=== PATIENT | male | born 1940 | race Caucasian/White ===

== ENCOUNTER 2020-09-10 07:59 | Outpatient (REF) | payer MEDICARE, SELFPAY ==
[2020-09-10 10:21] LABS: MANUAL DIFF FLAG NO
[2020-09-10 10:45] LABS: Estimated Average Glucose 166 mg/dL; Hemoglobin A1c % 7.4 %
[2020-09-10 10:54] LABS: Alanine Aminotransferase 24 U/L (0-40); Albumin Level 3.7 g/dL (3.5-5.0); Alkaline Phosphatase 82 U/L (39-117); Anion Gap 13 (12-20); Aspartate Amino Transferase 21 U/L (5-37); Basophils Percent Auto 0.3 % (0-2); Bilirubin Total 1.9 mg/dL (0.0-1.0); Blood Urea Nitrogen 20 mg/dL (9-16); Calcium 8.7 mg/dL (8.4-10.2); Carbon Dioxide 25 mmol/L (22-29); Chloride 106 mmol/L (96-108); Cholesterol 85 mg/dL; Eosinophils Absolute Auto 0.3 X10*3/uL (0.0-0.4); Eosinophils Percent Auto 3.9 % (0-4); Estimated Glomerular Filt Rate > 60; Glucose Fasting 141 mg/dL (60-99); HDL Cholesterol 25 mg/dL; Hematocrit 41.9 % (42-52); Hemoglobin 13.8 g/dl (14.0-18.0); Imm Gran Abs Auto 0.04 X10*3/uL (0.00-0.03); Imm Gran Pct Auto 0.6 % (0.0-0.4); LDL Cholesterol Calculated 42 mg/dl; Lymphocytes Absolute Auto 1.1 X10*3/uL (1.2-4.9); Lymphocytes Percent Auto 15.2 % (20-40); Mean Corpuscular HGB Conc 32.9 g/dl (31.0-36.0); Mean Corpuscular Hemoglobin 27.8 pg (27.0-33.0); Mean Corpuscular Volume 84.5 fL (80-98); Mean Platelet Volume 11.6 fL (9.4-12.4); Monocytes Absolute Auto 0.7 X10*3/uL (0.1-1.2); Monocytes Percent Auto 10.3 % (2-11); Neutrophils Percent Auto 69.7 % (45-73); Platelet Count 172 X10*3/uL (160-400); Potassium 4.3 mmol/L (3.3-5.1); Red Blood Count 4.96 X10*6/uL (4.60-5.80); Red Cell Distribution Width 13.5 % (11.0-16.0); Sodium 140 mmol/L (135-145); Triglycerides 90 mg/dL; White Blood Count 7.1 X10*3/uL (4.8-10.8)
[2020-09-10 11:16] LABS: Creatinine Urine 76.02 mg/dL; Microalbum/Creatinine Ratio Ur 9.2 ug/mg cr
== END 2020-09-10 08:00 | disposition home or self-care (01) ==
LOC: HO.10HDL 07:59
PROVIDERS: Visit Provider Internal Medicine
DX: Z00.00 Encounter for general adult medical examination without abnormal findings (principal); E11.9 Type 2 diabetes mellitus without complications
CPT/HCPCS: 36415; 80053; 80061; 82043; 83036; 85025

== ENCOUNTER 2021-07-31 08:19 | Outpatient (REF) | payer MEDICARE, SELFPAY ==
[2021-07-31 11:08] LABS: Cholesterol 82 mg/dL; Glucose Fasting 155 mg/dL (60-99); HDL Cholesterol 24 mg/dL; LDL Cholesterol Calculated 44 mg/dl; Triglycerides 74 mg/dL
[2021-07-31 12:09] LABS: Estimated Average Glucose 154 mg/dL
== END 2021-07-31 08:20 | disposition home or self-care (01) ==
LOC: HO.10HDL 08:19
PROVIDERS: Visit Provider Internal Medicine
DX: E11.65 Type 2 diabetes mellitus with hyperglycemia (principal)
CPT/HCPCS: 36415; 80061; 82947; 83036

== ENCOUNTER 2022-10-14 08:42 | Outpatient (REF) | payer MEDICARE, SELFPAY ==
[2022-10-14 10:25] LABS: MANUAL DIFF FLAG NO
[2022-10-14 10:30] LABS: Basophils Percent Auto 0.2 % (0-2); Eosinophils Absolute Auto 0.3 X10*3/uL (0.0-0.4); Eosinophils Percent Auto 3.3 % (0-4); Hematocrit 42.1 % (42.0-52.0); Hemoglobin 13.7 g/dl (14.0-18.0); Imm Gran Abs Auto 0.07 X10*3/uL (0.00-0.03); Imm Gran Pct Auto 0.8 % (0.0-0.4); Lymphocytes Absolute Auto 1.3 X10*3/uL (1.2-4.9); Lymphocytes Percent Auto 13.5 % (20-40); Mean Corpuscular HGB Conc 32.5 g/dl (31.0-36.0); Mean Corpuscular Hemoglobin 26.8 pg (27.0-33.0); Mean Corpuscular Volume 82.4 fL (80.0-98.0); Mean Platelet Volume 11.6 fL (9.4-12.4); Monocytes Absolute Auto 0.9 X10*3/uL (0.1-1.2); Monocytes Percent Auto 9.5 % (2-11); Neutrophils Absolute Auto 6.7 x10*3/uL (2.0-8.3); Neutrophils Percent Auto 72.7 % (45-73); Platelet Count 165 X10*3/uL (160-400); Red Blood Count 5.11 X10*6/uL (4.60-5.80); Red Cell Distribution Width 14.5 % (11.0-16.0); White Blood Count 9.2 X10*3/uL (4.8-10.8)
[2022-10-14 10:49] LABS: Estimated Average Glucose 163 mg/dL; Hemoglobin A1c % 7.3 %
[2022-10-14 11:10] LABS: Alanine Aminotransferase 23 U/L (0-40); Albumin Level 3.6 g/dL (3.5-5.0); Alkaline Phosphatase 90 U/L (39-117); Anion Gap 13 (12-20); Aspartate Amino Transferase 21 U/L (5-37); Blood Urea Nitrogen 18 mg/dL (9-16); Calcium 8.9 mg/dL (8.4-10.2); Carbon Dioxide 23 mmol/L (22-29); Chloride 109 mmol/L (96-108); Cholesterol 84 mg/dL; Estimated Glomerular Filt Rate > 60; Glucose Fasting 153 mg/dL (60-99); HDL Cholesterol 23 mg/dL; LDL Cholesterol Calculated 44 mg/dl; Sodium 141 mmol/L (135-145); Total Protein 6.2 g/dL (6.5-8.0); Triglycerides 87 mg/dL
== END 2022-10-14 08:43 | disposition home or self-care (01) ==
LOC: HO.10HDL 08:42
PROVIDERS: Visit Provider Internal Medicine
DX: D64.9 Anemia, unspecified (principal); N28.9 Disorder of kidney and ureter, unspecified; R73.9 Hyperglycemia, unspecified; E78.5 Hyperlipidemia, unspecified
CPT/HCPCS: 36415; 80053; 80061; 83036; 85025

== ENCOUNTER 2023-03-09 14:22 | Outpatient (AMB) | payer MEDICARE, SELFPAY ==
[2023-03-09 14:24] VITALS: BP 108/60; PULSE 68; O2SAT 98; BMI 25.0
--- NOTE | 2023-03-09 14:24 | MHC.PC.OV ---
Vital Signs 03/09/23 14:24 Height 5 ft 6 in Weight 155 lb BMI 25.0 BP 108/60 Blood Pressure Location Lt brachial Position Sitting Pulse 68 Pulse Source Pulse Oximeter Pulse Oximetry (%) 98 Oxygen Delivery Method Room Air Intake Visit Reasons: [facility] 02/27-03/01 Afib Research Staff Member Required: No Financial Recruiter: Not Required per policy Accompanied by: Self / Same As Patient Allergies No Known Allergies Allergy (Verified 03/09/23 14:25) Medication List - Last Reconciled 03/09/23 by Gadiel Mata MD apixaban (Eliquis) 5 mg PO BID aspirin 81 mg PO DAILY atorvastatin 80 mg PO DAILY blood sugar diagnostic Onetouch Ultra Test Strips to check blood sugars once a day dorzolamide-timolol 22.3-6.8 mg/mL 1 drp ophthalmic (eye) BID lancets Onetouch Lancets To check blood sugars once a day latanoprost 0.005% 1 drp ophthalmic (eye) BEDTIME lisinopril 10 mg PO DAILY metformin 500 mg PO BID metoprolol succinate ER 100 mg PO DAILY Tobacco use date assessed: 03/09/23 Fall risk assessment: No Falls in past year Last assessed Fall Risk: 03/09/23 Dental Screening Dental Screen Date: 03/09/23 Did you have a dental visit in the last 12 months?: No Did you have a dental problem in the last 6 months where you did not have access to dental care?: No Was dental information given to patient?: Patient has dentist HPI [facility] 02/27-03/01 Afib HPI Details admitted with paroxysmal afib; converted spontaneously; sees cardiology at [facility] Medical History Encounter for initial annual wellness visit (AWV) in Medicare patient Diabetes mellitus Surgical History History of heart artery stent History of heart bypass surgery Social History Housing: House Alcohol intake: never Patient Tobacco Use Status: Former Tobacco user Tobacco use type: Cigarette Second Hand Smoke Exposure: No Current occupational status: retired Cognitive needs: No Hearing needs: No Vision needs: Yes Questionnaire PHQ-9 Over the last 2 weeks, how often have you been bothered by any of the following problems? 1. Little interest or pleasure in doing things: not at all 2. Feeling down, depressed, or hopeless: not at all 3. Trouble falling or staying asleep, or sleeping too much: not at all 4. Feeling tired or having little energy: not at all 5. Poor appetite or overeating: not at all 6. Feeling bad about yourself - or that you are a failure or have let yourself or your family down: not at all 7. Trouble concentrating on things, such as reading the newspaper or watching television: not at all 8. Moving or speaking so slowly that other people could have noticed. Or the opposite - being so fidgety or restless that you have been moving around a lot more than usual: not at all 9. Thoughts that you would be better off or of hurting yourself in some way: not at all Total score: 0 Depression Screening Interpretation: Negative Depression Screening Done: Yes 41230 - PHQ-9 Billing: Yes Source: Developed by Drs. Js Pathak, Janett Cummings, Stef Trevino and colleagues, with an educational len from [employer]. Thrive Questionnaire Date Thrive assessed: 10/24/22 AUDIT C Alcohol Use Questionnaire (AUDIT-C) 1. How often do you have a drink containing alcohol?: Never Total Score: 0 CRYSTAL-7 AMB Questionnaire CRYSTAL-7 Date CRYSTAL - 7 assessed: 10/24/22 Source: Developed by Drs. Js Pathak, Stef Brennan and colleagues, with an educational len from [employer]. Review of Systems Const Denies chills, Denies headache(s) and Denies weight loss ENT Denies headache(s) Card Denies chest pain, Denies syncope, Denies irregular heart rhythm and Denies dyspnea Resp Denies chest congestion, Denies cough and Denies dyspnea GI Denies abdominal pain, Denies change in stool character, Denies nausea and Denies vomiting Musc Denies deformity and Denies joint swelling Neuro Denies syncope and Denies headache(s) Physical exam (Primary Care) Vital Signs: Last Vital Signs Pulse 68 03/09/23 14:24 BP 108/60 03/09/23 14:24 Pulse Ox 98 03/09/23 14:24 Oxygen Delivery Method Room Air 03/09/23 14:24 BMI result Body Mass Index 25.0 Tobacco/Smoking Status: Tobacco use Status Tobacco use date assessed 03/09/23 03/09/23 14:29 Patient Tobacco Use Status Former Tobacco user 03/09/23 14:24 Tobacco use type Cigarette 03/09/23 14:24 PHQ-9: PHQ-9 Score PHQ-9: Total score 0 03/09/23 14:29 Depression Screening Interpretation: Negative Thrive Assessment: Date of Thrive Assessment Date Thrive assessed 10/24/22 03/09/23 14:24 Const General: cooperative, comfortable, no acute distress and alert Neck Neck: Yes no lymphadenopathy Thyroid: Thyroid normal Resp Effort & Inspection: normal respiratory effort Auscultation: clear to auscultation bilaterally Percussion: percussion normal Cardio Jugular venous distension: no JVD Palpation: normal PMI Rate: regular rate Rhythm: regular rhythm Heart sounds: S1 normal heart sound present and S2 normal heart sound present GI Inspection: Yes normal to inspection Palpation (GI): No hepatosplenomegaly present Skin General skin exam: no rashes or lesions noted Extrem General: Yes no clubbing, cyanosis or edema Assessment and Plan Assessment & Plan (1) Atrial fibrillation: Code(s): I48.91 - Unspecified atrial fibrillation Plan: stable; same rx Coding Level of Care Code Est Pt Level 3 (74402) Diagnoses Atrial fibrillation I48.91
== END 2023-03-09 14:41 | disposition home or self-care (01) ==
PROVIDERS: PCP Internal Medicine; Visit Provider Internal Medicine
DX: I48.91 Unspecified atrial fibrillation (principal)
CPT/HCPCS: 99213

== ENCOUNTER 2023-04-28 14:21 | Outpatient (AMB) | payer MEDICARE, SELFPAY ==
[2023-04-28 14:23] VITALS: BP 138/78; PULSE 53; O2SAT 98; BMI 24.2
--- NOTE | 2023-04-28 14:23 | A.OFFPC_ITS ---
Vital Signs 04/28/23 14:23 Height 5 ft 6 in Weight 150 lb BMI 24.2 BP 138/78 Blood Pressure Location Lt brachial Position Sitting Pulse 53 Pulse Source Pulse Oximeter Pulse Oximetry (%) 98 Oxygen Delivery Method Room Air Intake Visit Reasons: [place], Kidney Mass Optometrist President/Practice Owner Required: No Body Coverer: Not Required per policy Accompanied by: Self / Same As Patient Allergies No Known Allergies Allergy (Verified 04/28/23 14:23) Medication List - Last Reconciled 04/28/23 by Gadiel Mata MD apixaban (Eliquis) 5 mg PO BID aspirin 81 mg PO DAILY atorvastatin 80 mg PO DAILY blood sugar diagnostic Onetouch Ultra Test Strips to check blood sugars once a day dorzolamide-timolol 22.3-6.8 mg/mL 1 drp ophthalmic (eye) BID lancets Onetouch Lancets To check blood sugars once a day latanoprost 0.005% 1 drp ophthalmic (eye) BEDTIME lisinopril 10 mg PO DAILY metformin 500 mg PO BID metoprolol succinate ER 100 mg PO DAILY Tobacco use date assessed: 03/09/23 Fall risk assessment: No Falls in past year Last assessed Fall Risk: 04/28/23 Dental Screening Dental Screen Date: 04/28/23 Did you have a dental visit in the last 12 months?: Yes Did you have a dental problem in the last 6 months where you did not have access to dental care?: No Was dental information given to patient?: Patient has dentist HPI [place], Kidney Mass HPI Details had CBD stones extracted via ercp; incidental renal mass found and MRI pending; feels well [facility] Medical History Encounter for initial annual wellness visit (AWV) in Medicare patient Diabetes mellitus Surgical History History of heart artery stent History of heart bypass surgery Social History Housing: House Alcohol intake: never Patient Tobacco Use Status: Former Tobacco user Tobacco use type: Cigarette Second Hand Smoke Exposure: No Current occupational status: retired Cognitive needs: No Hearing needs: No Vision needs: Yes Questionnaire PHQ-9 Over the last 2 weeks, how often have you been bothered by any of the following problems? 1. Little interest or pleasure in doing things: not at all 2. Feeling down, depressed, or hopeless: not at all 3. Trouble falling or staying asleep, or sleeping too much: not at all 4. Feeling tired or having little energy: not at all 5. Poor appetite or overeating: not at all 6. Feeling bad about yourself - or that you are a failure or have let yourself or your family down: not at all 7. Trouble concentrating on things, such as reading the newspaper or watching television: not at all 8. Moving or speaking so slowly that other people could have noticed. Or the opposite - being so fidgety or restless that you have been moving around a lot more than usual: not at all 9. Thoughts that you would be better off or of hurting yourself in some way: not at all Total score: 0 Depression Screening Interpretation: Negative Depression Screening Done: Yes 31103 - PHQ-9 Billing: Yes Source: Developed by Drs. Js Pathak, Janett Cummings, Stef Trevino and colleagues, with an educational len from [employer]. Thrive Questionnaire Date Thrive assessed: 11/19/22 I am a: Patient What is your living situation today?: I have a steady place to live Within the past 12 months, did the food you bought not last and you didn't have the money to get more?: Never true Within the past 12 months, did you worry whether your food would run out before you got money to buy more?: Never true Do you have trouble paying for medicines?: No Do you have trouble getting transportation to medical appointments?: No Do you have trouble paying your heating and electricity bill?: No Do you have trouble taking care of your child, family member or friend?: No Do you have trouble with day-to-day activities such as bathing, preparing meals, shopping, managing finances, etc.?: No Are you currently unemployed and looking for a job?: No Are you interested in more education?: No Please select the resources that you would like help with: None AUDIT C Alcohol Use Questionnaire (AUDIT-C) 1. How often do you have a drink containing alcohol?: Never Total Score: 0 Score Reviewed/Action Taken: Yes CRYSTAL-7 AMB Questionnaire CRYSTAL-7 Date CRYSTAL - 7 assessed: 04/28/23 Feeling nervous, anxious, or on edge: 0 = Not at all Not being able to stop or control worryin = Not at all Worrying too much about different things: 0 = Not at all Trouble relaxin = Not at all Being so restless that it is hard to sit still: 0 = Not at all Becoming easily annoyed or irritable: 0 = Not at all Feeling afraid as if something awful might happen: 0 = Not at all Total CRYSTAL-7 score (0-4 normal; 5-9 mild; 10-14 moderate; 15-21 severe): 0 Source: Developed by Drs. Js Pathak, Janett Cummings, Stef Trevino and colleagues, with an educational len from [employer]. CRYSTAL-7 Assessment Billing CRYSTAL-7 Assessment Tool: CRYSTAL-7 Assessment 95934 Review of Systems Const Denies chills, Denies headache(s) and Denies weight loss ENT Denies headache(s) Card Denies chest pain, Denies syncope, Denies irregular heart rhythm and Denies dyspnea Resp Denies chest congestion, Denies cough and Denies dyspnea GI Denies abdominal pain, Denies change in stool character, Denies nausea and Denies vomiting Musc Denies deformity and Denies joint swelling Neuro Denies syncope and Denies headache(s) Physical exam (Primary Care) Vital Signs: Last Vital Signs Pulse 53 04/28/23 14:23 BP 138/78 04/28/23 14:23 Pulse Ox 98 04/28/23 14:23 Oxygen Delivery Method Room Air 04/28/23 14:23 BMI result Body Mass Index 24.2 Tobacco/Smoking Status: Tobacco use Status Tobacco use date assessed 03/09/23 04/28/23 14:24 Patient Tobacco Use Status Former Tobacco user 04/28/23 14:24 Tobacco use type Cigarette 04/28/23 14:24 PHQ-9: PHQ-9 Score PHQ-9: Total score 0 04/28/23 14:35 Depression Screening Interpretation: Negative Thrive Assessment: Date of Thrive Assessment Date Thrive assessed 11/19/22 04/28/23 14:24 Const General: cooperative, comfortable, no acute distress and alert Neck Neck: Yes no lymphadenopathy Thyroid: Thyroid normal Resp Effort & Inspection: normal respiratory effort Auscultation: clear to auscultation bilaterally Percussion: percussion normal Cardio Jugular venous distension: no JVD Palpation: normal PMI Rate: regular rate Rhythm: regular rhythm Heart sounds: S1 normal heart sound present and S2 normal heart sound present GI Inspection: Yes normal to inspection Palpation (GI): No hepatosplenomegaly present Skin General skin exam: no rashes or lesions noted Extrem General: Yes no clubbing, cyanosis or edema Results AMB Hemoglobin A1c AMB Hemoglobin A1c 9.1 % Last Edit by LEONARDO Hitchcock on 04/28/23 14:36 Results Reviewed Results Reviewed: Laboratory Last Values Hgb A1c (Clinic) 9.1 % (4.0-6.0) H 04/28/23 14:24 Assessment and Plan Assessment & Plan (1) Renal mass: Code(s): N28.89 - Other specified disorders of kidney and ureter Plan: as per urology Orders: Orders AMB Hemoglobin A1c Today E11.9 - Type 2 diabetes mellitus without complications Medications: Refilled blood sugar diagnostic Onetouch Ultra Test Strips to check blood sugars once a day 100 ea 3RF DX: E11.0 lancets Onetouch Lancets To check blood sugars once a day 100 ea 2RF diabetes mellitus E11.9 - Type 2 diabetes mellitus without complications Coding Level of Care Code Est Pt Level 3 (87638) Diagnoses Renal mass N28.89 Additional Codes CRYSTAL-7 Assessment Billing - CRYSTAL-7 Assessment Tool: CRYSTAL-7 Assessment [id number] ([id number])
== END 2023-04-28 14:57 | disposition home or self-care (01) ==
PROVIDERS: PCP Internal Medicine; Visit Provider Internal Medicine
DX: E11.9 Type 2 diabetes mellitus without complications (principal); N28.89 Other specified disorders of kidney and ureter
CPT/HCPCS: 83036; 99213

== ENCOUNTER 2023-06-04 09:28 | Outpatient (REF) | payer MEDICARE, SELFPAY ==
[2023-06-04 10:42] LABS: Blood Urea Nitrogen 15 mg/dL (9-16); Estimated Glomerular Filt Rate > 60
== END 2023-06-04 09:29 | disposition home or self-care (01) ==
LOC: HO.10HDL 09:28
PROVIDERS: Visit Provider Radiology Vascular & Interventional Radiology
DX: R79.89 Other specified abnormal findings of blood chemistry (principal); R94.4 Abnormal results of kidney function studies
CPT/HCPCS: 36415; 82565; 84520

== ENCOUNTER 2023-06-19 09:13 | Outpatient (REF) | payer MEDICARE, SELFPAY ==
[2023-06-19 11:57] LABS: Blood Urea Nitrogen 19 mg/dL (9-16); Estimated Glomerular Filt Rate 56
== END 2023-06-19 09:14 | disposition home or self-care (01) ==
LOC: HO.10HDL 09:13
PROVIDERS: Visit Provider Radiology Vascular & Interventional Radiology
DX: R79.89 Other specified abnormal findings of blood chemistry (principal); R94.4 Abnormal results of kidney function studies
CPT/HCPCS: 36415; 82565; 84520

== ENCOUNTER → 2023-06-26 15:24 | Outpatient (BNV) | payer MEDICARE, SELFPAY | PROVIDERS: PCP Internal Medicine; Visit Provider Internal Medicine Cardiovascular Disease | DX: I44.0 Atrioventricular block, first degree (principal) | CPT/HCPCS: 93010 ==

== ENCOUNTER → 2023-07-02 11:21 | Day surgery (SDC) | payer MEDICARE, SELFPAY ==
--- NOTE | 2023-06-26 | ECG_ITS ---
Test Reason : preop Blood Pressure : / mmHG Vent. Rate : 062 BPM Atrial Rate : 062 BPM P-R Int : 224 ms QRS Dur : 082 ms QT Int : 404 ms P-R-T Axes : 002 009 057 degrees QTc Int : 410 ms Sinus rhythm with 1st degree A-V block Otherwise normal ECG When compared with ECG of 27-AUG-2001 06:52, Premature atrial complexes are no longer Present [place] interval has increased T wave amplitude has increased in Inferior leads Referred By: Cielo St Electronically Signed By:Vitaliy Perkins
[2023-06-26 14:29] VITALS: BP 139/65; PULSE 57; RESP 20; O2SAT 97; BMI 24.9
--- NOTE | 2023-06-26 14:36 | P.CONAN_ITS ---
Documented by User: Cielo St NP 06/29/23 10:03 HPI - Anesthesia Eval Consult details Narrative: 83yo M for Kidney Cryo-Ablation Legally blind No recent illness No CP/SOB with gym 3 x weekly Follows [facility] cardiology. Last visit 05/19/2023. Stable. CAD s/p CABG x 5 (2001) and Stent (2016) Conservative treatment for SVT. Doesn't feel symptoms. Eliquis for afib DM. Metformin only. Random POC 120-140 Post-op delerium x 1 per family report after ERCP 03/2023. Very sick prior, jaundice, new SVT. Also ? disoriented d/t blindness. [facility] Active Problems Active Problems: All Active Problems (Updated 06/26/23 @ 14:18 by Nena Sanchez RN) Renal mass (Acute) Atrial fibrillation (Acute) Venous thromboembolism (Acute) Hyperlipidemia (Acute) Hypertension (Acute) Encounter for initial annual wellness visit (AWV) in Medicare patient (Acute) Diabetes mellitus (Acute) Past Medical History Medical History Family history of anesthesia complication Urinary retention Renal calculi PAD (peripheral artery disease) CAD (coronary artery disease) SVT (supraventricular tachycardia) Macular degeneration Renal mass Atrial fibrillation Elevated cholesterol HTN (hypertension) Encounter for initial annual wellness visit (AWV) in Medicare patient Diabetes mellitus Family History Family history of problems with anesthesia: Yes (PONV for daughter, grandchild) Surgical History Surgical History History of ear surgery Hx of cataract extraction Hx of endoscopic retrograde cholangiopancreatography History of heart artery stent History of heart bypass surgery History of Problems with Anesthesia: No Social History Social History Housing: House Are you a primary workforce investment act career manager to a significant other at home: No Do you presently have visiting nurse or other home services: No Alcohol intake: never Patient Tobacco Use Status: Former Tobacco user Quit Date: age 51's Tobacco use type: Pipe Second Hand Smoke Exposure: No Current occupational status: retired Cognitive needs: No Hearing needs: No Vision needs: Yes Meds Allergies Allergy/AdvReac Type Severity Reaction Status Date / Time No Known Allergies Allergy Verified 07/02/23 12:46 Home Medications Medication Instructions Recorded Confirmed Last Taken Type metoprolol succinate 100 mg 100 mg PO QAM 10/02/20 06/26/23 07/02/23 History tablet,extended release 24 hr apixaban 5 mg tablet (Eliquis) 5 mg PO BID 09/11/21 06/25/23 06/26/23 History aspirin 81 mg tablet,delayed 81 mg PO QAM 09/11/21 06/26/23 06/27/23 History release dorzolamide 22.3 mg-timolol 6.8 1 drp ophthalmic (eye) BID 09/11/21 06/25/23 Unknown History mg/mL eye drops latanoprost 0.005 % eye drops 1 drp ophthalmic (eye) BEDTIME 09/11/21 06/25/23 Unknown History [id number] 250 mg-dha 90 1 cap PO QAM 06/25/23 06/26/23 Unknown History mg-epa 160 fm-fqhr-kvxn-zeax capsule (Ocuvite Adult 50 Plus) atorvastatin 80 mg tablet 80 mg PO BEDTIME 06/26/23 06/26/23 Unknown History lisinopril 10 mg tablet 10 mg PO QAM 06/26/23 06/26/23 Unknown History Exam Height,Weight and Vital Signs: Height 5 ft 6 in Weight 69.853 kg Last Vital Signs Pulse 57 06/26/23 14:29 Resp 20 06/26/23 14:29 BP 139/65 06/26/23 14:29 Pulse Ox 97 06/26/23 14:29 O2 Del Method Room Air 06/26/23 14:29 Pertinent Lab Results Pertinent Lab Results: Lab Results 06/26/23 Range/Units 15:17 WBC 9.2 (4.8-10.8) X10*3/uL RBC 4.80 (4.60-5.80) X10*6/uL Hgb 12.7 L (14.0-18.0) g/dl Hct 39.2 L (42.0-52.0) % MCV 81.7 (80.0-98.0) fL MCH 26.5 L (27.0-33.0) pg MCHC 32.4 (31.0-36.0) g/dl RDW 14.7 (11.0-16.0) % Plt Count 256 D (160-400) X10*3/uL MPV 10.6 (9.4-12.4) fL Absolute Nucleated RBC 0.000 (0.0-0.012) X10*3/uL Nucleated RBC % (auto) 0.0 (0.0-0.2) /100WBC PT 15.9 H (11.1-13.3) SEC INR 1.3 H (0.9-1.1) APTT 36.1 (26.0-36.8) SEC Sodium 138 (135-145) mmol/L Potassium 4.3 (3.3-5.1) mmol/L Chloride 106 (96-108) mmol/L Carbon Dioxide 27 (22-29) mmol/L Anion Gap 9 L (12-20) BUN 16 (9-16) mg/dL Creatinine 1.17 (0.5-1.4) mg/dL Estim Creat Clear Calc 43.9 Estimated GFR 60 Random Glucose 251 H (60-115) mg/dL Calcium 9.2 (8.4-10.2) mg/dL Narrative Narrative: EKG 06/2023 Vent. Rate : 062 BPM Atrial Rate : 062 BPM P-R Int : 224 ms QRS Dur : 082 ms QT Int : 404 ms P-R-T Axes : 002 009 057 degrees QTc Int : 410 ms Sinus rhythm with 1st degree A-V block Otherwise normal ECG When compared with ECG of 27-AUG-2001 06:52, Premature atrial complexes are no longer Present [place] interval has increased T wave amplitude has increased in Inferior leads Airway Mallampati Class: II TM Dist: >3cm Neck ROM: Full Denture: Upper and Lower Heart: Reg, rare PVC Lungs: CTAB Assessment and Plan Assessment Anesthesia Assessment: Anesthesia Plan Discussed and PAT Visit Final Anesthetic Review Family History of Problems with Anesthesia: Yes (PONV for daughter, grandchild) History of Problems with Anesthesia: No Documented by User: Mauro Junior MD 07/03/23 10:17 HPI - Anesthesia Eval Consult details Narrative: CASE was cancelled due to no rep available for the procedure 83yo M for Kidney Cryo-Ablation Legally blind No recent illness No CP/SOB with gym 3 x weekly Follows [facility] cardiology. Last visit 05/19/2023. Stable. CAD s/p CABG x 5 (2001) and Stent (2016) Conservative treatment for SVT. Doesn't feel symptoms. Eliquis for afib DM. Metformin only. Random POC 120-140 Post-op delerium x 1 per family report after ERCP 03/2023. Very sick prior, jaundice, new SVT. Also ? disoriented d/t blindness. [facility] Past Medical History Medical History Family history of anesthesia complication Urinary retention Renal calculi PAD (peripheral artery disease) CAD (coronary artery disease) SVT (supraventricular tachycardia) Macular degeneration Renal mass Atrial fibrillation Elevated cholesterol HTN (hypertension) Encounter for initial annual wellness visit (AWV) in Medicare patient Diabetes mellitus Surgical History Surgical History History of ear surgery Hx of cataract extraction Hx of endoscopic retrograde cholangiopancreatography History of heart artery stent History of heart bypass surgery Social History Social History Housing: House Are you a primary workforce investment act career manager to a significant other at home: No Do you presently have visiting nurse or other home services: No Alcohol intake: never Patient Tobacco Use Status: Former Tobacco user Quit Date: age 51's Tobacco use type: Pipe Second Hand Smoke Exposure: No Current occupational status: retired Cognitive needs: No Hearing needs: No Vision needs: Yes Meds Allergies Allergy/AdvReac Type Severity Reaction Status Date / Time No Known Allergies Allergy Verified 07/02/23 12:46 Home Medications Medication Instructions Recorded Confirmed Last Taken Type metoprolol succinate 100 mg 100 mg PO QAM 10/02/20 06/26/23 07/02/23 History tablet,extended release 24 hr apixaban 5 mg tablet (Eliquis) 5 mg PO BID 09/11/21 06/25/23 06/26/23 History aspirin 81 mg tablet,delayed 81 mg PO QAM 05/06/26/23 06/27/23 History release dorzolamide 22.3 mg-timolol 6.8 1 drp ophthalmic (eye) BID 09/11/21 06/25/23 Unknown History mg/mL eye drops latanoprost 0.005 % eye drops 1 drp ophthalmic (eye) BEDTIME 09/11/21 06/25/23 Unknown History [id number] 250 mg-dha 90 1 cap PO QAM 06/25/23 06/26/23 Unknown History mg-epa 160 fv-nqfy-gzap-zeax capsule (Ocuvite Adult 50 Plus) atorvastatin 80 mg tablet 80 mg PO BEDTIME 06/26/23 06/26/23 Unknown History lisinopril 10 mg tablet 10 mg PO QAM 06/26/23 06/26/23 Unknown History
[2023-06-26 15:39] LABS: Hematocrit 39.2 % (42.0-52.0); Hemoglobin 12.7 g/dl (14.0-18.0); Mean Corpuscular HGB Conc 32.4 g/dl (31.0-36.0); Mean Corpuscular Hemoglobin 26.5 pg (27.0-33.0); Mean Corpuscular Volume 81.7 fL (80.0-98.0); Mean Platelet Volume 10.6 fL (9.4-12.4); Platelet Count 256 X10*3/uL (160-400); Red Cell Distribution Width 14.7 % (11.0-16.0); White Blood Count 9.2 X10*3/uL (4.8-10.8)
[2023-06-26 15:43] LABS: INTERNATIONAL NORM RATIO 1.3 (0.9-1.1); Prothrombin Time 15.9 SEC (11.1-13.3)
[2023-06-26 15:46] LABS: Partial Thromboplastin Time 36.1 SEC (26.0-36.8)
[2023-06-26 16:12] LABS: Anion Gap 9 (12-20); Blood Urea Nitrogen 16 mg/dL (9-16); Calcium 9.2 mg/dL (8.4-10.2); Carbon Dioxide 27 mmol/L (22-29); Chloride 106 mmol/L (96-108); Creatinine Clr Calc Pharmacy 43.9; Estimated Glomerular Filt Rate 60; Glucose Random 251 mg/dL (60-115); Potassium 4.3 mmol/L (3.3-5.1); Sodium 138 mmol/L (135-145)
[2023-07-02] MEDS: Lactated Ringers 1,000 ML 100 ML IVCONT (11:58)
[2023-07-02 12:42] VITALS: BP 155/69; PULSE 58; RESP 18; TEMP 36.6; O2SAT 98; BMI 24.9
[2023-07-02 12:54] LABS: Glucose, Whole Blood 132 mg/dL (60-115)
== END ==
PROVIDERS: Nurse Practitioner; PCP Internal Medicine; Visit Provider Radiology Vascular & Interventional Radiology
DX: D41.00 Neoplasm of uncertain behavior of unspecified kidney (principal); Z53.8 Procedure and treatment not carried out for other reasons; I48.91 Unspecified atrial fibrillation; Z79.01 Long term (current) use of anticoagulants; E11.9 Type 2 diabetes mellitus without complications; Z79.84 Long term (current) use of oral hypoglycemic drugs
CPT/HCPCS: 36415; 80048; 82947; 85027; 85610; 85730; 86850; 86900; 86901; 93005; J2371; J2704

== ENCOUNTER 2023-07-07 11:22 | Day surgery (SDC) | payer MEDICARE, SELFPAY ==
--- NOTE | 2023-07-06 08:46 | P.CONAN_ITS ---
Documented by User: Cielo St NP 07/09/23 10:29 HPI - Anesthesia Eval Consult details Narrative: 83yo M for Kidney Cryo-Ablation (Case previously cx'd d/t rep availability) Legally blind No recent illness No CP/SOB with gym 3 x weekly Follows [facility] cardiology. Last visit 05/19/2023. Stable. CAD s/p CABG x 5 (2001) and Stent (2016) Conservative treatment for SVT. Doesn't feel symptoms. Eliquis for afib DM. Metformin only. Random POC 120-140 Post-op delerium x 1 per family report after ERCP 03/2023. Very sick prior, jaundice, new SVT. Also ? disoriented d/t blindness. [facility] Active Problems Active Problems: All Active Problems (Updated 06/26/23 @ 15:07 by Nena Sanchez RN) Renal mass (Acute) Atrial fibrillation (Acute) Venous thromboembolism (Acute) Hyperlipidemia (Acute) Hypertension (Acute) Encounter for initial annual wellness visit (AWV) in Medicare patient (Acute) Diabetes mellitus (Acute) Past Medical History Medical History (Updated 07/07/23 @ 12:36 by Janelle Bailey, SHEBA) Myocardial infarction Family history of anesthesia complication Urinary retention Renal calculi PAD (peripheral artery disease) CAD (coronary artery disease) SVT (supraventricular tachycardia) Macular degeneration Renal mass Atrial fibrillation Elevated cholesterol HTN (hypertension) Encounter for initial annual wellness visit (AWV) in Medicare patient Diabetes mellitus Family History Family history of problems with anesthesia: Yes (PONV for daughter, grandchild) Surgical History Surgical History History of ear surgery Hx of cataract extraction Hx of endoscopic retrograde cholangiopancreatography History of heart artery stent History of heart bypass surgery History of Problems with Anesthesia: No Social History Social History Housing: House Are you a primary career based intervention coordinator to a significant other at home: No Do you presently have visiting nurse or other home services: No Alcohol intake: never Patient Tobacco Use Status: Former Tobacco user Quit Date: age 50's Tobacco use type: Pipe Second Hand Smoke Exposure: No Current occupational status: retired Cognitive needs: No Hearing needs: No Vision needs: Yes Meds Allergies Allergy/AdvReac Type Severity Reaction Status Date / Time No Known Allergies Allergy Verified 07/07/23 12:37 Home Medications Medication Instructions Recorded Confirmed Last Taken Type metoprolol succinate 100 mg 100 mg PO QAM 10/02/20 07/07/23 07/02/23 History tablet,extended release 24 hr apixaban 5 mg tablet (Eliquis) 5 mg PO BID 09/11/21 07/07/23 07/04/23 History aspirin 81 mg tablet,delayed 81 mg PO QAM 09/11/21 07/07/23 06/30/23 History release dorzolamide 22.3 mg-timolol 6.8 1 drp ophthalmic (eye) BID 09/11/21 07/07/23 Unknown History mg/mL eye drops latanoprost 0.005 % eye drops 1 drp ophthalmic (eye) BEDTIME 09/11/21 07/07/23 Unknown History uacvnyzp-agr-ssajp3 250 mg-dha 90 1 cap PO QAM 06/25/23 07/07/23 Unknown History mg-epa 160 hh-osel-nptl-zeax capsule (Ocuvite Adult 50 Plus) atorvastatin 80 mg tablet 80 mg PO BEDTIME 06/26/23 07/07/23 Unknown History lisinopril 10 mg tablet 10 mg PO QAM 06/26/23 07/07/23 Unknown History Exam Height,Weight and Vital Signs: Height 5 ft 6 in Weight 69.853 kg Last Vital Signs Pulse 57 06/26/23 14:29 Resp 20 06/26/23 14:29 BP 139/65 06/26/23 14:29 Pulse Ox 97 06/26/23 14:29 O2 Del Method Room Air 06/26/23 14:29 Pertinent Lab Results Pertinent Lab Results: Lab Results 06/26/23 Range/Units 15:17 WBC 9.2 (4.8-10.8) X10*3/uL RBC 4.80 (4.60-5.80) X10*6/uL Hgb 12.7 L (14.0-18.0) g/dl Hct 39.2 L (42.0-52.0) % MCV 81.7 (80.0-98.0) fL MCH 26.5 L (27.0-33.0) pg MCHC 32.4 (31.0-36.0) g/dl RDW 14.7 (11.0-16.0) % Plt Count 256 D (160-400) X10*3/uL MPV 10.6 (9.4-12.4) fL Absolute Nucleated RBC 0.000 (0.0-0.012) X10*3/uL Nucleated RBC % (auto) 0.0 (0.0-0.2) /100WBC PT 15.9 H (11.1-13.3) SEC INR 1.3 H (0.9-1.1) APTT 36.1 (26.0-36.8) SEC Sodium 138 (135-145) mmol/L Potassium 4.3 (3.3-5.1) mmol/L Chloride 106 (96-108) mmol/L Carbon Dioxide 27 (22-29) mmol/L Anion Gap 9 L (12-20) BUN 16 (9-16) mg/dL Creatinine 1.17 (0.5-1.4) mg/dL Estim Creat Clear Calc 43.9 Estimated GFR 60 Random Glucose 251 H (60-115) mg/dL Calcium 9.2 (8.4-10.2) mg/dL Narrative Narrative: EKG 06/2023 Vent. Rate : 062 BPM Atrial Rate : 062 BPM P-R Int : 224 ms QRS Dur : 082 ms QT Int : 404 ms P-R-T Axes : 002 009 057 degrees QTc Int : 410 ms Sinus rhythm with 1st degree A-V block Otherwise normal ECG When compared with ECG of 27-AUG-2001 06:52, Premature atrial complexes are no longer Present GA interval has increased T wave amplitude has increased in Inferior leads Airway Mallampati Class: II TM Dist: >3cm Neck ROM: Full Denture: Upper and Lower Heart: Reg, rare PVC Lungs: CTAB Assessment and Plan Assessment Anesthesia Assessment: Chart Reviewed (Seen in PAT 06/26/23) Final Anesthetic Review Family History of Problems with Anesthesia: Yes (PONV for daughter, grandchild) History of Problems with Anesthesia: No Documented by User: Nohemi Jerome MD 07/10/23 08:18 [facility] Past Medical History Medical History (Updated 07/07/23 @ 12:36 by Janelle Bailey, SHEBA) Myocardial infarction Family history of anesthesia complication Urinary retention Renal calculi PAD (peripheral artery disease) CAD (coronary artery disease) SVT (supraventricular tachycardia) Macular degeneration Renal mass Atrial fibrillation Elevated cholesterol HTN (hypertension) Encounter for initial annual wellness visit (AWV) in Medicare patient Diabetes mellitus Surgical History Surgical History History of ear surgery Hx of cataract extraction Hx of endoscopic retrograde cholangiopancreatography History of heart artery stent History of heart bypass surgery Social History Social History Housing: House Are you a primary career based intervention coordinator to a significant other at home: No Do you presently have visiting nurse or other home services: No Alcohol intake: never Patient Tobacco Use Status: Former Tobacco user Quit Date: age 51's Tobacco use type: Pipe Second Hand Smoke Exposure: No Current occupational status: retired Cognitive needs: No Hearing needs: No Vision needs: Yes Meds Allergies Allergy/AdvReac Type Severity Reaction Status Date / Time No Known Allergies Allergy Verified 07/07/23 12:37 Home Medications Medication Instructions Recorded Confirmed Last Taken Type metoprolol succinate 100 mg 100 mg PO QAM 10/02/20 07/07/23 07/02/23 History tablet,extended release 24 hr apixaban 5 mg tablet (Eliquis) 5 mg PO BID 09/11/21 07/07/23 07/04/23 History aspirin 81 mg tablet,delayed 81 mg PO QAM 09/11/21 07/07/23 06/30/23 History release dorzolamide 22.3 mg-timolol 6.8 1 drp ophthalmic (eye) BID 09/11/21 07/07/23 Unknown History mg/mL eye drops latanoprost 0.005 % eye drops 1 drp ophthalmic (eye) BEDTIME 09/11/21 07/07/23 Unknown History xwkqooto-nej- 250 mg-dha 90 1 cap PO QAM 06/25/23 07/07/23 Unknown History mg-epa 160 pn-owdn-yqqk-zeax capsule (Ocuvite Adult 50 Plus) atorvastatin 80 mg tablet 80 mg PO BEDTIME 06/26/23 07/07/23 Unknown History lisinopril 10 mg tablet 10 mg PO QAM 06/26/23 07/07/23 Unknown History Assessment and Plan Assessment Anesthesia Assessment: Anesthesia Plan Discussed Final Anesthetic Review NPO: Yes ASA Class: III Final Preanesthetic Review: No Changes in Pt Med Stat, Meds/Allgs Chart Reviewed, Consent Obtained/Reviewed and Anes Risks/Benef Reviewed Patient Risk: Intermediate Procedure Risk: Low Anesthetic Plan Anesthetic Plan: GA Disposition: Standard PACU
[2023-07-07] VITALS (13 sets, daily range): BP systolic 128–163; BP diastolic 61–78; PULSE 54–65; RESP 16–20; TEMP 36.1–36.4; O2SAT 95–100; BMI 23.4
--- NOTE | ~2023-07-07 | CT_ITS ---
Cryoablation of the right renal mass INDICATIONS: 3.4 cm mass in the upper pole of the right kidney After informed written consent was obtained an official timeout was performed immediately prior to the procedure. Anesthesia: General PROCEDURE: With the patient in a prone position the skin was prepped and draped in the usual fashion overlying the posterior lateral aspect of the right kidney. Preliminary scans were obtained both pre and post injection of 60 mL of IV contrast. Under CT guidance to ICE DES 2.1 [employer] cryoablation probes were placed in the superior and inferior aspect of the above-noted mass. Freezing was performed for 10 minutes followed by a thaw time of 3 minutes followed by repeat freeze of 10 minutes. Scans at 5 minutes and 10 minutes demonstrate excellent position of the probe was with a with an excellent treatment zone. After the second freeze of 10 minutes the probes were removed after proper time of warming. CT/CT guided ablation renal IMPRESSION: Cryoablation of the right upper pole renal mass with 2- 2.1 mm [employer] cryoablation probes with excellent results.
[2023-07-07] MEDS: Lactated Ringers 1,000 ML 100 ML IVCONT (12:37)
[2023-07-07] MEDS: iohexoL 350 MG/ML 100 ML INFUS..BTL IV (14:51)
== END 2023-07-07 17:42 | disposition home or self-care (01) ==
LOC: HO.SSS 11:23
PROVIDERS: Radiology Vascular & Interventional Radiology; PCP Internal Medicine; Visit Provider Radiology Vascular & Interventional Radiology
DX: C64.1 Malignant neoplasm of right kidney, except renal pelvis (principal); E11.9 Type 2 diabetes mellitus without complications; I10 Essential (primary) hypertension; Z79.84 Long term (current) use of oral hypoglycemic drugs; Z79.01 Long term (current) use of anticoagulants; Z79.82 Long term (current) use of aspirin; Z79.899 Other long term (current) drug therapy
CPT/HCPCS: 50593; 77013; 86850; 86900; 86901; C2618; J0360; J1100; J2371; J2405; J2704

== ENCOUNTER → 2023-07-07 13:13 | Outpatient (BNV) | payer MEDICARE, SELFPAY | PROVIDERS: PCP Internal Medicine; Visit Provider Radiology Vascular & Interventional Radiology | DX: N28.89 Other specified disorders of kidney and ureter (principal) | CPT/HCPCS: 50593; 77013 ==

== ENCOUNTER 2023-08-13 10:36 | Outpatient (REF) | payer MEDICARE, SELFPAY ==
[2023-08-13 13:25] LABS: Appearance Urine Clear; Color Urine Dark Yellow; Glucose Urine UA Negative (Negative); Leukocyte Esterase Urine Moderate (2+) (Negative); Nitrite Urine Negative (Negative); PH 5.5 (5.0-9.0); UMIC TRIGGER UA YES; Urine Blood Trace (Negative); Urine Ketones Negative (Negative); Urine Protein Trace mg/dL (Neg-Trace)
[2023-08-13 13:30] LABS: Anion Gap 9 (12-20); Bacteria Urine None Seen (None Seen); Blood Urea Nitrogen 18 mg/dL (9-16); Calcium 8.8 mg/dL (8.4-10.2); Carbon Dioxide 25 mmol/L (22-29); Chloride 110 mmol/L (96-108); Estimated Glomerular Filt Rate > 60; Glucose Random 156 mg/dL (60-115); Hyaline Casts Urine 0-2 /LPF (0-2); Magnesium 1.6 mg/dL (1.6-2.6); Phosphorus 3.1 mg/dL (2.7-4.5); Potassium 4.1 mmol/L (3.3-5.1); RBC Urine 0-2 /HPF (0-2); Sodium 140 mmol/L (135-145); WBC Urine 21-50 /HPF (0-5)
[2023-08-13 13:33] LABS: Estimated Average Glucose 171 mg/dL; Hemoglobin A1c % 7.6 % (<6.0)
[2023-08-13 14:29] LABS: Creatinine Urine 95.43 mg/dL; Microalbum/Creatinine Ratio Ur 48.2 ug/mg cr (<30); Protein/Creatinine Ratio, Ur 0.19 (<0.2); Total Protein Urine Random 18 mg/dL (<12)
[2023-08-16 10:58] LABS: Calcium, Ionized 4.9 mg/dL (4.7-5.5)
[2023-08-17 17:13] LABS: VITAMIN D (1,25 OH) D3 23 pg/mL; Vit D (1,25-Dihydroxy) Total 23 pg/mL (18-72); Vitamin D (1,25 OH) D2 <8 pg/mL
== END 2023-08-13 10:37 | disposition home or self-care (01) ==
LOC: HO.10HDL 10:36
PROVIDERS: Visit Provider Internal Medicine
DX: E11.22 Type 2 diabetes mellitus with diabetic chronic kidney disease (principal); I12.9 Hypertensive chronic kidney disease with stage 1 through stage 4 chronic kidney disease, or unspecified chronic kidney disease; N18.9 Chronic kidney disease, unspecified; N28.89 Other specified disorders of kidney and ureter
CPT/HCPCS: 36415; 80048; 81001; 82043; 82330; 82570; 82652; 83036; 83735; 84100; 84156

== ENCOUNTER 2023-11-03 08:30 | Outpatient (REF) | payer MEDICARE, SELFPAY ==
[2023-11-03 10:18] LABS: MANUAL DIFF FLAG NO
[2023-11-03 10:30] LABS: Basophils Percent Auto 0.3 % (0-2); Eosinophils Absolute Auto 0.4 X10*3/uL (0.0-0.4); Eosinophils Percent Auto 4.7 % (0-4); Hematocrit 40.3 % (42.0-52.0); Hemoglobin 13.2 g/dl (14.0-18.0); Imm Gran Abs Auto 0.05 X10*3/uL (0.00-0.03); Imm Gran Pct Auto 0.7 % (0.0-0.4); Lymphocytes Absolute Auto 1.3 X10*3/uL (1.2-4.9); Lymphocytes Percent Auto 17.5 % (20-40); Mean Corpuscular HGB Conc 32.8 g/dl (31.0-36.0); Mean Corpuscular Hemoglobin 27.5 pg (27.0-33.0); Mean Platelet Volume 11.1 fL (9.4-12.4); Monocytes Absolute Auto 0.9 X10*3/uL (0.1-1.2); Monocytes Percent Auto 11.7 % (2-11); Neutrophils Percent Auto 65.1 % (45-73); Platelet Count 157 X10*3/uL (160-400); Red Cell Distribution Width 15.4 % (11.0-16.0); White Blood Count 7.6 X10*3/uL (4.8-10.8)
[2023-11-03 10:40] LABS: Estimated Average Glucose 157 mg/dL; Hemoglobin A1c % 7.1 % (<6.0)
[2023-11-03 10:43] LABS: Alanine Aminotransferase 20 U/L (0-40); Albumin Level 3.7 g/dL (3.5-5.0); Alkaline Phosphatase 96 U/L (39-117); Anion Gap 14 (12-20); Aspartate Amino Transferase 21 U/L (5-37); Blood Urea Nitrogen 17 mg/dL (9-16); Calcium 8.9 mg/dL (8.4-10.2); Carbon Dioxide 23 mmol/L (22-29); Chloride 109 mmol/L (96-108); Cholesterol 73 mg/dL (<200); Estimated Glomerular Filt Rate 58; Glucose Fasting 158 mg/dL (60-99); HDL Cholesterol 24 mg/dL (>40); LDL Cholesterol Calculated 36 mg/dL (<100); Potassium 4.1 mmol/L (3.3-5.1); Sodium 142 mmol/L (135-145); Total Protein 6.2 g/dL (6.5-8.0); Triglycerides 65 mg/dL (<150)
[2023-11-03 11:03] LABS: Thyroid Stimulating Hormone 3.25 uIU/mL (0.32-4.0)
== END 2023-11-03 08:31 | disposition home or self-care (01) ==
LOC: HO.10HDL 08:30
PROVIDERS: Visit Provider Internal Medicine
DX: R73.9 Hyperglycemia, unspecified (principal); Z13.0 Encounter for screening for diseases of the blood and blood-forming organs and certain disorders involving the immune mechanism; Z13.220 Encounter for screening for lipoid disorders; Z13.29 Encounter for screening for other suspected endocrine disorder
CPT/HCPCS: 36415; 80053; 80061; 83036; 84443; 85025

== ENCOUNTER 2023-11-23 10:57 | Outpatient (AMB) | payer MEDICARE, SELFPAY ==
--- NOTE | 2023-11-23 11:02 | AM.OFFVISMDC ---
Intake Vital Signs 11/23/23 11:03 Height 5 ft 6 in Weight 151 lb 0.2 oz BMI 24.4 BP 144/62 H Blood Pressure Location Lt brachial Position Sitting Pulse 51 Pulse Source Pulse Oximeter Pulse Oximetry (%) 98 Oxygen Delivery Method Room Air Intake Visit Reasons: wellness [employer] Required: No Allergies No Known Allergies Allergy (Verified 11/23/23 11:03) Medication List - Last Reconciled 11/24/23 by Gadiel Mata MD apixaban (Eliquis) 5 mg PO BID aspirin 81 mg PO QAM atorvastatin 80 mg PO BEDTIME blood sugar diagnostic Onetouch Ultra Test Strips to check blood sugars once a day blood sugar diagnostic (OneTouch Ultra Test strips) test once daily dorzolamide-timolol 22.3-6.8 mg/mL 1 drp ophthalmic (eye) BID lancets Onetouch Lancets To check blood sugars once a day lancets ([employer] UltraSoft 2 Lancet) test once daily latanoprost 0.005% 1 drp ophthalmic (eye) BEDTIME lisinopril 10 mg PO QAM metformin 500 mg PO BID metoprolol succinate ER 100 mg PO QAM hw-br-vv9-oci-ssc-cbot-lut-daly 250 mg (90 mg-160 mg) (Ocuvite Adult 50 Plus) 1 cap PO QAM HPI wellness HPI Details atrial fib hypertension diabetes and hyperlipidemia; doing well PFSH Medical History (Updated 11/24/23 @ 08:39 by Gadiel Mata MD) Myocardial infarction Family history of anesthesia complication Urinary retention Renal calculi PAD (peripheral artery disease) CAD (coronary artery disease) SVT (supraventricular tachycardia) Macular degeneration Renal mass Atrial fibrillation Elevated cholesterol HTN (hypertension) Encounter for initial annual wellness visit (AWV) in Medicare patient Diabetes mellitus Surgical History History of ear surgery Hx of cataract extraction Hx of endoscopic retrograde cholangiopancreatography History of heart artery stent History of heart bypass surgery Social History Housing: House Are you a primary caregivers non medical to a significant other at home: No Do you presently have visiting nurse or other home services: No Alcohol intake: never Patient Tobacco Use Status: Former Tobacco user Tobacco use type: Pipe Second Hand Smoke Exposure: No Current occupational status: retired Cognitive needs: No Hearing needs: No Vision needs: Yes Questionnaire Medicare Wellness Checkup What is your age?: 80 or older What gender do you identify with?: male During the past 4 weeks, how much have you been bothered by emotional problems such as feeling anxious, depressed, irritable, sad or downhearted, and blue?: not at all During the past 4 weeks, has your physical & emotional health limited your social activities with family, friends, neighbors, or groups?: not at all During the past 4 weeks, how much bodily pain have you generally had?: no pain During the past 4 weeks, was someone available to help you if you needed & wanted help?: yes, as much as I wanted During the past 4 weeks, what was the hardest physical activity you could do for at least 2 minutes?: heavy Can you get to places out of walking distance without help? (For eg., can you travel alone on buses, taxis or drive your car?): No Can you go shopping for groceries or clothes without someone's help?: No Can you prepare your own meals?: No Can you do your housework without help?: No Because of any health problems, do you need the help of another person with your personal care needs such as eating, bathing, dressing or getting around the house?: No Can you handle your own money without help?: Yes During the past 4 weeks, how would you rate your health in general?: excellent During the past 4 weeks how have things been going for you?: pretty well Are you having difficulties driving your car?: not applicable, I don't use a car Do you always fasten your seat belt when you are in a car?: yes, usually During past 4 weeks, have you been bothered by the following: never: Falling or dizzy when standing up, Sexual problems?, Trouble eating well?, Teeth or denture problems?, Problems using the telephone? and Tiredness or fatigue? Have you fallen 2 or more times in the past year?: No Are you afraid of falling?: No Are you a smoker?: no During the past 4 weeks, how many drinks of wine, beer, or other alcoholic beverages did you have?: no alcohol at all Do you exercise for about 20 minutes 3 or more times a week?: yes, all the time Have you been given information to help with the following?: no: Hazards in your house that might hurt you? and no: Keeping track of your medications? How often do you have trouble taking medicines the way you have been told to take them?: I always take medicine as prescribed How confident are you that you can control & manage most of your health problems?: very confident What is your race?: White Mini Mental State Exam (MMSE) Orientation What is the (year) (season) (date) (day) (month)?: year, season, date, day and month Where are we (state) (county) (town or city) (hospital) (floor)?: state, county, town or city, hospital/clinic and floor Registration Name of 3 unrelated objects clearly and slowly, then ask patient to repeat all 3 of them. (1st repeat determines score. Make sure they can repeat all three): object 1, object 2 and object 3 Attention & Calculation (CHOOSE ONE) Ask pt to begin with 100 & count backward by 7. Stop after 5 repeats. If pt cannot ask them to spell the word WORLD backward.: 93 Spell WORLD backwards (DLROW): 2 letters Recall Ask patient to repeat the 3 items from question #3.: object 1 Score Score: 17 Activity of Daily Living Bathing - sponge bath, tub bath or shower: receives no assistance (gets in/out by self, if usual bathing means Dressing - getting clothes from closets & drawers, including inner/outer garments & fasteners.: gets clothes & gets completely dressed without help Toileting - going to the 'toilet room' for urine/bowel elimination & cleaning self/arranging clothes: goes to toilet room, cleans self, arranges clothes without help Transfer: moves in & out of bed and chair without help (may use support object) Continence: controls urination/bowel movements completely by self Feeding: feeds self without help Total Score: 0 Information obtained from: patient Using telephone: independent Traveling: independent Shopping: independent Preparing meals: independent Housework: independent Taking medicine: independent Managing money: independent PHQ-9 Over the last 2 weeks, how often have you been bothered by any of the following problems? 1. Little interest or pleasure in doing things: not at all 2. Feeling down, depressed, or hopeless: not at all 3. Trouble falling or staying asleep, or sleeping too much: not at all 4. Feeling tired or having little energy: not at all 5. Poor appetite or overeating: not at all 6. Feeling bad about yourself - or that you are a failure or have let yourself or your family down: not at all 7. Trouble concentrating on things, such as reading the newspaper or watching television: not at all 8. Moving or speaking so slowly that other people could have noticed. Or the opposite - being so fidgety or restless that you have been moving around a lot more than usual: not at all 9. Thoughts that you would be better off or of hurting yourself in some way: not at all Total score: 0 Depression Screening Interpretation: Negative Depression Screening Done: Yes 87597 - PHQ-9 Billing: Yes Source: Developed by Drs. Js Pathak, Janett Cummings, Stef Trevino and colleagues, with an educational len from [employer]. Review of Systems Const Denies chills, Denies fatigue, Denies headache(s) and Denies weight loss Eyes Denies change in vision, Denies diplopia and Denies eye pain ENT Reports Normal hearing present, Denies vertigo, Denies dizziness, Denies headache(s) and Denies nasal discharge Card Denies chest pain, Denies rapid heart rate and Denies dyspnea on exertion Resp Denies chest congestion, Denies cough, Denies pain with cough and Denies dyspnea on exertion GI Denies abdominal pain, Denies hematochezia and Denies change in bowel habits Musc Denies myalgias, Denies arthralgias and Denies joint swelling Skin/Breast Denies lesions and Denies unusual bruising Neuro Reports Normal hearing present, Denies vertigo, Denies dizziness, Denies headache(s) and Denies focal weakness Endo Denies fatigue Physical Exam Vital Signs: Last Vital Signs Pulse 51 11/23/23 11:03 BP 144/62 H 11/23/23 11:03 Pulse Ox 98 11/23/23 11:03 Oxygen Delivery Method Room Air 11/23/23 11:03 BMI result Body Mass Index 24.4 Neuro Cranial nerves: Yes Normal hearing present Assessment & Plan Assessment & Plan (1) Medicare annual wellness visit, subsequent: Code(s): Z00.00 - Encounter for general adult medical examination without abnormal findings Plan: do yakelin=bs; rhomberg and whisper tests nl Orders: Orders Complete Blood Count Auto Diff Today Z13.0 - Encounter for screening for diseases of the blood and blood-forming organs and certain disorders involving the immune mechanism Hemoglobin A1c Today R73.9 - Hyperglycemia, unspecified Lipid Panel Today Z13.220 - Encounter for screening for lipoid disorders Thyroid Stimulating Hormone Today Z13.29 - Encounter for screening for other suspected endocrine disorder Comprehensive [place]. Panel Fast Today Z13.9 - Encounter for screening, unspecified Quality Reporting (2019) Depression/Bipolar (159/160/161/177) PHQ-9: Total score: 0 Coding Level of Care Code Medicare Subsequent (G0439) Diagnoses Medicare annual wellness visit, subsequent Z00.00 CPT Codes Advance Care Planning - Advance Care Planning discussion: On file, no changes ([id number]) Advance Care Planning Advance Care Planning discussion: On file, no changes Forms completed: Health Care Proxy
[2023-11-23 11:03] VITALS: BP 144/62; PULSE 51; O2SAT 98; BMI 24.4
== END 2023-11-23 11:21 | disposition home or self-care (01) ==
PROVIDERS: PCP Internal Medicine; Visit Provider Internal Medicine
DX: Z00.00 Encounter for general adult medical examination without abnormal findings (principal); I48.91 Unspecified atrial fibrillation; I10 Essential (primary) hypertension; E11.65 Type 2 diabetes mellitus with hyperglycemia
CPT/HCPCS: 1123F; G0439

== ENCOUNTER 2024-07-15 11:05 | Outpatient (REF) | payer MEDICARE, SELFPAY ==
[2024-07-15 13:40] LABS: Hematocrit 40.7 % (42.0-52.0); Hemoglobin 13.1 g/dl (14.0-18.0)
[2024-07-15 14:00] LABS: Alanine Aminotransferase 18 U/L (0-40); Albumin Level 3.7 g/dL (3.5-5.0); Alkaline Phosphatase 101 U/L (39-117); Aspartate Amino Transferase 29 U/L (5-37); Bilirubin Direct 0.3 mg/dL (0.0-0.5); Bilirubin Total 0.8 mg/dL (0.0-1.0); Estimated Glomerular Filt Rate 57; Total Protein 6.7 g/dL (6.5-8.0)
== END 2024-07-15 11:06 | disposition home or self-care (01) ==
LOC: HO.10HDL 11:05
PROVIDERS: Visit Provider Pharmacist
DX: I48.91 Unspecified atrial fibrillation (principal)
CPT/HCPCS: 36415; 80076; 82565; 85014; 85018

== ENCOUNTER 2024-08-16 14:31 | Outpatient (AMB) | payer MEDICARE, SELFPAY ==
--- NOTE | 2024-08-16 14:38 | A.OFFPC_ITS ---
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: Present Accompanied by: Spouse Allergies No Known Allergies Allergy (Verified 08/16/24 15:14) Medication List - Last Reconciled 08/16/24 by Britt Ulrich PA-C aspirin 81 mg PO QAM atorvastatin 80 mg PO BEDTIME blood sugar diagnostic (OneTouch Ultra Test strips) test once daily blood sugar diagnostic Onetouch Ultra Test Strips to check blood sugars once a day dorzolamide-timolol 22.3-6.8 mg/mL 1 drp ophthalmic (eye) BID lancets Onetouch Lancets To check blood sugars once a day lancets (OneTouch UltraSoft 2 Lancet) test once daily latanoprost 0.005% 1 drp ophthalmic (eye) BEDTIME lisinopril 10 mg PO QAM metformin 500 mg PO BID metoprolol succinate ER 100 mg PO QAM [id number]-[id number]-lut-daly 250 mg (90 mg-160 mg) (Ocuvite Adult 50 Plus) 1 cap PO QAM Tobacco use date assessed: 08/16/24 Fall risk assessment: No Falls in past year Last assessed Fall Risk: 08/16/24 Dental Screening Dental Screen Date: 08/16/24 Did you have a dental visit in the last 12 months?: No Did you have a dental problem in the last 6 months where you did not have access to dental care?: No Was dental information given to patient?: Patient declined HPI OFFICE VISIT TRANSFER FROM [facility] HPI Details 84-year-old male with past medical histo ry of diabetes mellitus, hypertension, hyperlipidemia, atrial fibrillation, history of DVT last seen by Dr. Mata 11/2023 coming in for follow up. In review of the notes, patient was seen by [facility] 01/2024 for renal mass concerning for renal cell carcinoma s/p embolization and cryoablation of the right kidney 05/2023 and 06/2023. CT scan was reviewed which showed renal mass decreasing in size recommended repeat MRI in 6 months an appointment to follow up.? He was seen by [facility] 11/10 continue on cardiac medications and follow up in 6 months. Presenting with a request for a routine follow-up and management of chronic conditions. Diagnosed with Atrial Fibrillation; subsequently re-evaluated through heart monitor to Supraventricular Tachycardia, allowing for management shift off Eliquis. Urological management ongoing post-MRI with stable findings; future imaging planned for reevaluation. Under ophthalmological care for vein occlusion history; cataract management completed; ongoing injections for macular degeneration with significant legal blindness. Patient was recently seen by Cardiology and taken off of Eliquis after a heart monitor revealed he was in SVT and not AFib. He will be seeing Dr. Sampson for management of SVT next week. He was seen by Urology last week advised to have additional imaging in January to determine further management of the renal cancer. Dr. Patel and has injections every 8 weeks for retina eye assoc had cataracts and vein occlusion and macular degeneration and he is now declared legally blind. [facility] Medical History Venous thromboembolism Myocardial infarction Family history of anesthesia complication Urinary retention Renal calculi PAD (peripheral artery disease) CAD (coronary artery disease) SVT (supraventricular tachycardia) Macular degeneration Renal mass Atrial fibrillation Elevated cholesterol HTN (hypertension) Encounter for initial annual wellness visit (AWV) in Medicare patient Diabetes mellitus Surgical History History of ear surgery Hx of cataract extraction Hx of endoscopic retrograde cholangiopancreatography History of heart artery stent History of heart bypass surgery Social History Housing: House Are you a primary congregational care pastor to a significant other at home: No Do you presently have visiting nurse or other home services: No Alcohol intake: never Patient Tobacco Use Status: Former Tobacco user Tobacco use type: Pipe e-Cigarette/Vaping Use: Never Used Second Hand Smoke Exposure: Yes service: No Current occupational status: retired Cognitive needs: No Hearing needs: No Vision needs: Yes (Glasses) Questionnaire PHQ-9 Over the last 2 weeks, how often have you been bothered by any of the following problems? 1. Little interest or pleasure in doing things: not at all 2. Feeling down, depressed, or hopeless: not at all 3. Trouble falling or staying asleep, or sleeping too much: not at all 4. Feeling tired or having little energy: not at all 5. Poor appetite or overeating: not at all 6. Feeling bad about yourself - or that you are a failure or have let yourself or your family down: not at all 7. Trouble concentrating on things, such as reading the newspaper or watching television: not at all 8. Moving or speaking so slowly that other people could have noticed. Or the opposite - being so fidgety or restless that you have been moving around a lot more than usual: not at all 9. Thoughts that you would be better off or of hurting yourself in some way: not at all Total score: 0 Depression Screening Interpretation: Negative Depression Screening Done: Yes Source: Developed by Drs. Js Pathak, Janett Cummings, Stef Trevino and colleagues, with an educational len from [employer]. Thrive Questionnaire Date Thrive assessed: 08/16/24 I am a: Patient What is your living situation today?: I have a steady place to live Within the past 12 months, did the food you bought not last and you didn't have the money to get more?: Never true Within the past 12 months, did you worry whether your food would run out before you got money to buy more?: Never true Do you have trouble paying for medicines?: No Do you have trouble getting transportation to medical appointments?: No Do you have trouble paying your heating and electricity bill?: No Do you have trouble taking care of your child, family member or friend?: No Do you have trouble with day-to-day activities such as bathing, preparing meals, shopping, managing finances, etc.?: No Are you currently unemployed and looking for a job?: No Are you interested in more education?: No Please select the resources that you would like help with: None Currently or been in a relationship where the following occur: No concerns reported THRIVE Score: 0 AUDIT C Alcohol Use Questionnaire (AUDIT-C) 1. How often do you have a drink containing alcohol?: Never Total Score: 0 CRYSTAL-7 AMB Questionnaire CRYSTAL-7 Date CRYSTAL - 7 assessed: 08/16/24 Feeling nervous, anxious, or on edge: 0 = Not at all Not being able to stop or control worryin = Not at all Worrying too much about different things: 0 = Not at all Trouble relaxin = Not at all Being so restless that it is hard to sit still: 0 = Not at all Becoming easily annoyed or irritable: 0 = Not at all Feeling afraid as if something awful might happen: 0 = Not at all Total CRYSTAL-7 score (0-4 normal; 5-9 mild; 10-14 moderate; 15-21 severe): 0 Source: Developed by Drs. Js Pathak, Janett Cummings, Stef Trevino and colleagues, with an educational len from [employer]. CRYSTAL-7 Assessment Billing CRYSTAL-7 Assessment Tool: CRYSTAL-7 Assessment 21441 Review of Systems Const Denies body aches, Denies chills, Denies fever(s), Denies headache(s) and Denies poor appetite Eyes Details: legally blind ENT Denies dysphagia, Denies dizziness, Denies headache(s) and Denies odynophagia Card Denies chest pain, Denies syncope, Denies edema, Denies irregular heart rhythm, Denies lightheadedness and Denies dyspnea Resp Denies cough and Denies dyspnea GI Denies abdominal pain, Denies constipation, Denies dysphagia, Denies diarrhea and Denies odynophagia Reports no additional complaints Musc Reports no additional complaints and Denies abnormal gait Skin/Breast Reports system reviewed and no additional complaints, except as documented Neuro Denies abnormal gait, Denies dizziness, Denies syncope and Denies headache(s) Psych Reports no additional complaints Physical exam (Primary Care) Vital Signs: Last Vital Signs Temp 97.5 F 08/16/24 14:39 Pulse 59 08/16/24 14:39 BP 110/70 08/16/24 14:39 Pulse Ox 97 08/16/24 14:39 Oxygen Delivery Method Room Air 08/16/24 14:39 BMI result Body Mass Index 24.4 Tobacco/Smoking Status: Tobacco use Status Tobacco use date assessed 08/16/24 08/16/24 14:39 Patient Tobacco Use Status Former Tobacco user 08/16/24 14:39 Tobacco use type Pipe 08/16/24 14:39 e-Cigarette/Vaping Use Never Used 08/16/24 14:39 PHQ-9: PHQ-9 Score PHQ-9: Total score 0 08/16/24 15:41 Depression Screening Interpretation: Negative Thrive Assessment: Date of Thrive Assessment Date Thrive assessed 08/16/24 08/16/24 14:39 Currently or been in a relationship where the following occur: No concerns reported Const General: cooperative, healthy appearing, comfortable and no acute distress Orientation/consciousness: patient oriented x3 HENMT Head: Yes normocephalic Ears: hearing grossly normal bilaterally General nose exam: Normal external nose present Eyes General: appearance normal, both eyes and all related structures Conjunctivae: conjunctivae normal Neck Neck: Yes full ROM and Yes no lymphadenopathy Resp Effort & Inspection: normal respiratory effort Auscultation: clear to auscultation bilaterally, no crackles, no rales, no rhonchi and no wheezes Cardio Rate: regular rate Rhythm: regular rhythm Skin General skin exam: no rashes or lesions noted Neuro General: patient oriented x3 Gait exam (Neuro): Normal gait present Extrem General: Yes normal to inspection, Yes full ROM and No edema Psych Affect: normal affect Attitude: cooperative Insight: Good insight present (Psych) Judgement: Good judgement present (Psych) Results AMB Hemoglobin A1c AMB Hemoglobin A1c 7.3 % Last Edit by LEONARDO Orosco on 08/16/24 14:56 Results Reviewed Results Reviewed: Laboratory Last Values Hgb A1c (Clinic) 7.3 % (4.0-6.0) H 08/16/24 14:38 Coding Level of Care Code Est Pt Level 4 (23669) Diagnoses Renal mass N28.89 Atrial fibrillation I48.91 Hyperlipidemia E78.5 Hypertension I10 Diabetes mellitus E11.9 S/P coronary artery stent placement Z95.5 Macular degeneration H35.30 SVT (supraventricular tachycardia) I47.10 Additional Codes CRYSTAL-7 Assessment Billing - CRYSTAL-7 Assessment Tool: CRYSTAL-7 Assessment 24196 ([id number]) Assessment & Plan Assessment & Plan (1) Renal mass: Code(s): N28.89 - Other specified disorders of kidney and ureter Category: Medical Plan: Patient was seen by Urology 01/2024 s/p embolization and cryoablation of right kidney mass. Repeat CT showed renal mass decreasing in size and recommending repeat MRI in 6 months. MRI was completed 07/20/2024 similar in size to 01/2024 study and advised to have repeat imaging in 6 months. Continue to follow with [facility]. (2) Atrial fibrillation: Code(s): I48.91 - Unspecified atrial fibrillation Category: Medical Plan: Patient is currently being managed with metoprolol 100 mg daily. He was recently taken off of Eliquis as Holter monitor recognized underlying rhythm as SVT and not atrial fibrillation. Continue to follow with Cardiology (3) Hyperlipidemia: Code(s): E78.5 - Hyperlipidemia, unspecified Category: Medical Plan: Avoid foods that are high in cholesterol such as red meat, fried foods, eggs and baked goods. Triglyceride goal of less than 150 and LDL goal of less than 70. Continue on atorvastatin 80 (4) Hypertension: Code(s): I10 - Essential (primary) hypertension Category: Medical Plan: Continue on current blood pressure medication. Avoid salt intake and encourage healthy diet and regular exercise. (5) Diabetes mellitus: Comment: type 2-dx 2015-FBS usually [id number] metformin Code(s): E11.9 - Type 2 diabetes mellitus without complications Category: Medical Plan: Decrease the amount of carbohydrates such as pasta, bread, rice, and potatoes and limit the amount of sweets. Although fruits are generally healthy they should be eaten in moderation as they are still high in sugar. Hemoglobin A1c goal of less than 7%. A1c elevated today at 7.2%. I did discuss with patient importance of monitoring blood sugars given history of myocardial infarction. Patient declines medication adjustment today and understands the risks of elevated blood sugar over time. I did strongly suggest to increase the metformin to 1000 mg b.i.d. which was declined by the patient he would like to continue to work on dietary adjustments at this time. (6) S/P coronary artery stent placement: Comment: 2016 Code(s): Z95.5 - Presence of coronary angioplasty implant and graft Category: Surgical Plan: Patient currently on aspirin daily. Recommend tight control of blood sugars, cholesterol and blood pressure. (7) Macular degeneration: Comment: legally blind Code(s): H35.30 - Unspecified macular degeneration Category: Medical Plan: Patient is declared legally blind by his battery container tester. He does receive monthly injections for macular degeneration. Continue to follow with ophthalmology (8) SVT (supraventricular tachycardia): Comment: conservative management per Cardiology Code(s): I47.10 - Supraventricular tachycardia, unspecified Category: Medical Plan: Patient is currently working with his wood preparation supervisor has his Holter monitor revealed SVTs underlying heart rhythm. He is seeing a specialist at the end of this month to determine further management. Plan Management of hypertension, now controlled with lisinopril and metoprolol, continues. The patient shows improvement in blood pressure readings. Cardiovascular care remains vigilant following the successful identification of Supraventricular Tachycardia; treatment plan adjustments include halting Eliquis, with future possibilities involving the Watchman device, upon Dr. Sampson?s consultation. Macular degeneration requires strict adherence to injection schedules every eight weeks for vision stabilization. Urological health remains monitored, with future imaging planned to assess prostate status. Heart health, previously challenged by a myocardial infarction and CABG, mandates ongoing surveillance and focused lipid management. Recent lab results show a favorable LDL level of 36 mg/dL, indicating effective management strategies. Scheduled blood work includes fasting labs and general urinalysis to monitor overall health and specifically manage diabetic risks. This note was constructed using voice recognition software. While every effort has been made to ensure accuracy and car seat maker, still areas may have been included sometimes these areas may affect the content or meeting of the given symptoms. Total time spent caring for the patient today was 30 minutes. This includes time spent before the visit reviewing the chart, time spent during the visit, and time spent after the visit and documentation. Patient was informed and verbally consented to the use of an ambient scribe for clinic note documentation during this visit. Orders: Orders AMB Hemoglobin A1c 08/16/24 E11.9 - Type 2 diabetes mellitus without complications Complete Blood Count Auto Diff 3 Months Z00.00 - Encounter for general adult medical examination without abnormal findings Comprehensive Met. Panel 3 Months Z00.00 - Encounter for general adult medical examination without abnormal findings Free T4 (Free Thyroxine) 3 Months Z00.00 - Encounter for general adult medical examination without abnormal findings TSH reflex Free T4 3 Months Z00.00 - Encounter for general adult medical examination without abnormal findings Vitamin B12 and Folate 3 Months Z00.00 - Encounter for general adult medical examination without abnormal findings Lipid Panel 3 Months E78.00 - Pure hypercholesterolemia, unspecified Microalbumin, Random (w Creat) 3 Months E11.9 - Type 2 diabetes mellitus without complications PSA, Ultra Sensitive 3 Months Z00.00 - Encounter for general adult medical e xamination without abnormal findings Vitamin D 25-OH Total 3 Months Z00.00 - Encounter for general adult medical examination without abnormal findings
[2024-08-16 14:39] VITALS: BP 110/70; PULSE 59; TEMP 36.4; O2SAT 97; BMI 24.4
--- OUTSIDE RECORDS SUMMARY | 2024-08-16 16:50 | XMS_ITS | Clinical Summary ---
Author Organization [facility] Facility Address [address] [place] [address] Care Team Providers Care Pipe Puller Name Role Phone Unavailable Primary Care Provider Unavailabl e Allergies No known active allergies Medications Eliquis 5 MG tablet Take 1 tablet by mouth 3 Active atorvastatin (LIPITOR) 80 MG tablet Take 80 mg by mouth 7 Active dorzolamide-gila olol (COSOPT) 2-0.5 % ophthalmic solution Administer 1 drop into affected eye(s) 2 Active OneTouch Ultra test strip FOR DX: E11.0 ONETOUCH ULTRA TEST STRIPS TO CHECK BLOOD SUGARS ONCE A DAY 4 Active Lancets (onetouch ultrasoft) lancets USE TO TEST ONCE DAILY 4 Active latanoprost (XALATAN) 0.005 % ophthalmic solution Administer 1 drop into both eyes at bed time 3 Active lisinopril 10 MG tablet Take 10 mg by mouth 7 Active metFORMIN (GLUCOPHAGE) 500 MG tablet Take 500 mg by mouth 7 Active metoprolol succinate XL (TOPROL-XL) 100 MG 24 hr tablet 4 Active Active Problems Problem Noted Date Diagnosed Date Paroxysmal supraventricular tachycardia 08/11/19 Type 2 diabetes mellitus 06/03/2023 Paroxysmal atrial fibrillation 06/03/2023 Hypertension 06/03/2023 Dyslipidemia 06/03/2023 Coronary arteriosclerosis 06/03/2023 Peripheral vascular disease 06/03/2023 Encounters Date Type Department Care Team Description 06/10/2024 Orders Only [facility] [address] [place] [id number] Addison Dillard MD Renal mass; Type 2 diabetes mellitus with diabetic chronic kidney disease (HCC); Hypertension from Last 3 Months Social History Tobacco Use Types Packs/Day Years Used Date Smoking Tobacco: Never Assessed Tobacco Cessation:Counseling Given: Not Answered Sex and Gender Information Value Date Recorded Sex Assigned at Not on file Legal Sex Male 7:57 AM EST Gender Identity Not on file Sexual Orientation Not on file Last Filed Vital Signs Vital Sign Reading Time Taken Comments Blood Pressure 130/64 08/13/2023 9:18 AM EDT Pulse 54 08/13/2023 9:18 AM EDT Temperature - - Respiratory Rate - - Oxygen Saturation - - Inhaled Oxygen Concentration - - Weight 65.3 kg (144 lb) 08/13/2023 9:18 AM EDT Height - - Body Mass Index - - Plan of Treatment Upcoming Encounters Date Type Department Care Team (Late st Contact Info) Description 08/25/2024 1:30 PM EDT Office Visit [facility] [address] [facility] [place] [id number] Addison Dillard MD [address] [facility] [address] [place] [id number] Health Maintenance Due Date Last Done Comments Pneumococcal Vaccine: 50+ Ye ars (1 of 2 - PCV) 01/25/1959 Diabetes: Hemoglobin A1C 04/17/2023 Diabetes: Ophthalmology Exam 04/17/2023 Diabetes: Pedal Pulse Checked 04/17/2023 Diabetes: Sensory Foot Exam 04/17/2023 Diabetes: Visual Foot Exam 04/17/2023 Influenza Vaccine (Season Ended) 2024 Hepatitis B Vaccine Aged Out No longe r eligible based on patient's age to complete this topic Insurance Medicare [facility] Medicare [facility]
--- OUTSIDE RECORDS SUMMARY | 2024-08-16 16:50 | XMS_ITS | Continuity of Care Document ---
Author Organization [facility] Address [address] [place] [id number] Care Team Providers Care Customer Service And Sales Consultant Name Role Phone Gadiel Mata MD Primary Care Physician Encounter [place] Date(s): 07/15/24 - 08/14/24 [facility] [address] [place] [phone]- Encounter Type: Triage Allergies, Adverse Reactions, Alerts No Known Allergies Immunizations Given and Recorded Vaccine Date Status Refusal Reason SARS-CoV-2 (COVID-19) mRNA BNT-162b2 vac 07/19/20 Given SARS-CoV-2 (COVID-19) mRNA BNT-162b2 vac 06/28/20 Given Medications aspirin 81 mg oral tablet 1 tablet = 81 mg, By Mouth, Daily, # 30 tablet, 0 Refills, Maintenance, 02/19/17 10:30:58 PM EDT, Tablet, [facility] 3 Start Date: 02/19/17 Status: Ordered Quantity: 30.0 Unit: tablet Repeat number: 1 atorvastatin 80 mg oral tablet = 80 mg, By Mouth, Daily at bedtime, # 30 tablet, 0 Refills, Maintenance, Tablet, Route to PharmacyElectronically, [id number], [facility] 3 Start Date: 02/19/17 Status: Ordered Quantity: 30.0 Unit: tablet Repeat number: 1 dorzolamide-timolol 2.23%-0.68% ophthalmic solution 1 drops, Eyes, Both, 2 times a day Start Date: 10/22/21 Status: Ordered Repeat number: 1 Eliquis 5 mg oral tablet 1 tablet, By Mouth, 2 times a day, # 180 tablet, 3 Refills, Maintenance, 03/10/24 11:05:00 AM EST, [facility] WBP, 166, cm, 10/30/23 12:28:00 EDT, Height, 72, kg, 04/13/23 10:04:00 EST, Dry Weight Start Date: 03/10/24 Status: Ordered Quantity: 180.0 Unit: tablet Repeat number: 1 latanoprost 0.005% ophthalmic solution 1 drops, Eyes, Both, Daily at bedtime Start Date: 10/22/21 Status: Ordered Repeat number: 1 lisinopril 10 mg oral tablet 10 mg, By Mouth, Daily, # 30 tablet, Refills 0, Tot. Refills 0, Maintenance, 02/19/17 10:31:37 PM EDT, Route to Pharmacy Electronically, [facility] 3 Start Date: 02/19/17 Status: Ordered Quantity: 30.0 Unit: tablet Repeat number: 1 metFORMIN 500 mg oral tablet 1 tablet = 500 mg, By Mouth, 2 times a day, # 60 tablet, 0 Refills, Maintenance, 02/19/17 10:31:30 PM EDT, Tablet, [facility] 3 Start Date: 02/19/17 Status: Ordered Quantity: 60.0 Unit: tablet Repeat number: 1 Metoprolol Succinate ER 100 mg oral tablet, extended release 100 mg, 1, tablet, By Mouth, Daily, # 90 tablet, Refills 3, Tot. Refills 3, Maintenance, 06/15/24 10:14:00 AM EST, Route to Pharmacy Electronically, [facility], Partial fill upon patient request if the prescription is for a schedule II opioid drug., 168, cm, 06/14/24 12:58:00 EST, Height, 69.5, kg, 04/16/24 23:04:00 EST, Dry Weight Start Date: 06/15/24 Status: Ordered Quantity: 90.0 Unit: tablet Repeat number: 4 Ocuvite 1 tablet, By Mouth, Daily, 0 Refills, Maintenance, 02/19/17 7:25:53 AM EDT Start Date: 02/19/17 Status: Ordered Repeat number: 1 Problem List Condition Confirmation Course Effective Dates Status Health St atus Informant Coronary artery disease Confirmed Active Dyslipidemia Confirmed Active Hypertension Confirmed Active Paroxysmal A-fib Confirmed Active Paroxysmal SVT (supraventricular tachycardia) Confirmed Active Peripheral arterial disease Confirmed Active Type 2 diabetes mellitus Confirmed Active Social History Social History Type Response Smoking Status Never smoker entered on: 11/28/14 Sex Sex Representation Male (finding) Patient Care team information Care Team Personnel Name: Lakeisha Rodriguez RN Position: [facility] RN Member Role: Primary Care Nurse Name: Kaci Cesar RN Position: [facility] RN Member Role: Primary Care Nurse Name: Katie Raya RN Position: [facility] RN Member Role: Primary Care Nurse Name: Angely Lee RN Position: [facility] RN Member Role: Primary Care Nurse Name: Gadiel Mata MD Position: Reference Physician Member Role: PCP Address: [address] [place] [id number] [employer]: Name: Frank Escobedo MD Position: [facility] Renal MD Member Role: Lifetime Consulting Physician Address: [address] [facility] [address] [facility] [place] [address]- [place] [employer]: Care Team Related Persons Name: HERNANDEZ OSORIO Name: KAITLYNN ONTIVEROS Insurance Providers Guarantor name: CEDRICK OSORIO Health Plan Information #: 1 Payer: MEDICARE PART B OUTPT Member Number: NA Policy Number: NA Group Number: NA Health Plan Information #: 2 Payer: [employer]EX Member Number: NA Policy Number: NA Group Number: NA
== END 2024-08-16 15:32 | disposition home or self-care (01) ==
LOC: HO.HMCH 14:32
DX: E11.9 Type 2 diabetes mellitus without complications (principal)

== ENCOUNTER → 2024-08-16 14:31 | Outpatient (BNVA) | payer MEDICARE, SELFPAY | DX: N28.89 Other specified disorders of kidney and ureter (principal); I48.91 Unspecified atrial fibrillation; E78.5 Hyperlipidemia, unspecified; E11.9 Type 2 diabetes mellitus without complications; I10 Essential (primary) hypertension; I47.10 Supraventricular tachycardia, unspecified; H35.30 Unspecified macular degeneration; Z95.5 Presence of coronary angioplasty implant and graft | CPT/HCPCS: 83036; 96127; 99212 ==

== ENCOUNTER 2024-11-08 09:13 | Outpatient (REF) | payer MEDICARE, SELFPAY ==
--- OUTSIDE RECORDS SUMMARY | 2024-11-08 09:46 | XMS_ITS | Clinical Summary ---
Author Organization [facility] Address [address] [place] [address] [place] [address] Phone Care Team Providers Care Machine Setup Operator Name Role Phone Oniel Eddy MD Primary Care Provider [phone] Allergies No known active allergies Medications atorvastatin (LIPITOR) 80 MG tablet Take 80 [...] Date Diagnosed Date Paroxysmal supraventricular tachycardia 08/11/19 24 Type 2 diabetes mellitus 06/03/2023 Paroxysmal atrial fibrillation 06/03/2023 Hypertension 06/03/2023 Dyslipidemia 06/03/2023 Coronary arteriosclerosis 06/03/2023 Peripheral vascular disease 06/03/2023 Encounters Date Type Department Care Team Description 08/25/2024 1:30 PM EDT [facility] Visit [facility] [address] [place] [address] Addison Dillard MD Renal mass (Primary Dx); Type 2 diabetes mellitus with diabetic chronic [...] Sign Reading Time Taken Comments Blood Pressure 130/62 08/25/2024 1:45 PM EDT Pulse 62 08/25/2024 1:45 PM EDT Temperature - - Respiratory Rate - - Oxygen Saturation 96% 08/25/2024 1:45 PM EDT Inhaled Oxygen Concentration - - Weight 70 kg (154 lb 6.4 oz) 08/25/2024 1:45 PM EDT Height - - Body Mass Index - - Plan of Treatment Upcoming Encounters Date Type Department Care Team (Late st Contact Info) Description 08/29/2025 1:00 PM EDT Office Visit [facility] [address] [address] Addison Dillard MD [address] [place] [phone] Health Maintenance Due Date Last Done Comments Pneumococcal Vaccine: 50+ Ye ars (1 of 2 - PCV) 01/25/1959 Diabetes: Hemoglobin A1C 04/17/2023 Diabetes: Ophthalmology Exam 04/17/2023 Diabetes: Pedal Pulse Checked 04/17/2023 Diabetes: Sensory Foot Exam 04/17/2023 Diabetes: Visual Foot Exam 04/17/2023 Influenza Vaccine (#1) 2024 Hepatitis B Vaccine Aged Out No longe r eligible based on patient's age to complete this topic Procedures Procedure Name Priority Date/Time Associated Diagnosis Comments ALT (EXTERNAL RESULT ENTRY) Routine 08/16/2024 from Last 3 Months Results * ALT (08/16/2024) Hemoglobin A1C 7.3 Blood specimen (specimen) Venous blood / Unknown 08/16/2024 us Historical Provider LAB BLOOD ORDERABLES Eugenia snowden Result from Last 3 Months Insurance Medicare [facility] Medicare [facility] Care Teams Machine Setup Operator Relationship Specialty Start Date End Date Oniel Eddy MD [address] [place], [place] PCP - General Internal Medicine 08/25/24
[2024-11-08 09:48] LABS: MANUAL DIFF FLAG NO
[2024-11-08 09:53] LABS: Hematocrit 39.1 % (42.0-52.0); Hemoglobin 13.0 g/dl (14.0-18.0); Imm Gran Abs Auto 0.07 X10*3/uL (0.00-0.03); Imm Gran Pct Auto 0.8 % (0.0-0.4); Lymphocytes Absolute Auto 1.2 X10*3/uL (1.2-4.9); Mean Corpuscular HGB Conc 33.2 g/dl (31.0-36.0); Mean Corpuscular Hemoglobin 27.5 pg (27.0-33.0); Mean Corpuscular Volume 82.8 fL (80.0-98.0); NRBC Abs Auto 0.000 X10*3/uL (0.0-0.012); NRBC Pct Auto 0.0 /100WBC (0.0-0.2); Platelet Count 187 X10*3/uL (160-400); Red Blood Count 4.72 X10*6/uL (4.60-5.80); White Blood Count 9.1 X10*3/uL (4.8-10.8)
[2024-11-08 10:24] LABS: Alanine Aminotransferase 19 U/L (0-40); Albumin Level 3.8 g/dL (3.5-5.0); Alkaline Phosphatase 94 U/L (39-117); Anion Gap 13 (12-20); Aspartate Amino Transferase 28 U/L (5-37); Blood Urea Nitrogen 20 mg/dL (9-16); Calcium 8.6 mg/dL (8.4-10.2); Carbon Dioxide 22 mmol/L (22-29); Chloride 108 mmol/L (96-108); Cholesterol 73 mg/dL (<200); Estimated Glomerular Filt Rate 50; HDL Cholesterol 21 mg/dL (>40); Potassium 4.1 mmol/L (3.3-5.1); Sodium 139 mmol/L (135-145); Total Protein 6.4 g/dL (6.5-8.0); Triglycerides 86 mg/dL (<150)
[2024-11-08 10:44] LABS: Free T4 (Free Thyroxine) 0.93 ng/dL (0.71-1.85)
[2024-11-08 10:46] LABS: Folate 12.9 ng/mL (> or = 4.0); Vitamin B12 163 pg/mL (200-900)
[2024-11-08 10:56] LABS: Microalbum/Creatinine Ratio Ur 17.9 ug/mg cr (<30)
[2024-11-11 21:03] LABS: PSA, Ultra Sensitive 0.88 ng/mL
== END 2024-11-08 09:14 | disposition home or self-care (01) ==
LOC: HO.10HDL 09:13
DX: Z00.00 Encounter for general adult medical examination without abnormal findings (principal); Z12.5 Encounter for screening for malignant neoplasm of prostate; E78.00 Pure hypercholesterolemia, unspecified; E11.9 Type 2 diabetes mellitus without complications
CPT/HCPCS: 36415; 80053; 80061; 82043; 82306; 82570; 82607; 82746; 84153; 84439; 84443; 85025

== ENCOUNTER 2024-12-02 13:28 | Outpatient (AMB) | payer MEDICARE, SELFPAY ==
--- OUTSIDE RECORDS SUMMARY | 2024-12-02 13:30 | XMS_ITS | Clinical Summary ---
Author Organization [facility][1] Address [address] [place] [address] Phone Care Team Providers Care Assembler Metal Furniture Name Role Phone Oniel Eddy MD Primary Care Provider [phone] Allergies No known active allergies Medications atorvastatin [...] Coronary arteriosclerosis 06/03/2023 Peripheral vascular disease 06/03/2023 Social History Tobacco Use Types Packs/Day Years [...] Office Visit [facility] [address] [address] Addison Dillard MD [address] [address] Health Maintenance Due Date Last Done [...] age to complete this topic Insurance Medicare [facility] Medicare [facility] Care Teams Assembler Metal Furniture Relationship Specialty Start Date End Date Oniel Eddy MD [facility] [place] [address] [place] PCP - General Internal Medicine 08/25/24
--- NOTE | 2024-12-02 13:32 | MHC.PC.OV ---
Vital Signs 12/02/24 13:33 Height 5 ft 6 in Blood Pressure Location Lt brachial Position Sitting Pulse Source Pulse Oximeter Oxygen Delivery Method Room Air Intake Visit Reasons: WELLNESS SUBSEQUENT Consumer Safety Inspector Required: No Accompanied by: Spouse Allergies No Known Allergies Allergy (Verified 12/02/24 13:32) Tobacco use date assessed: 12/02/24 Fall risk assessment: No Falls in past year Last assessed Fall Risk: 12/02/24 Dental Screening Dental Screen Date: 12/02/24 Did you have a dental visit in the last 12 months?: No Did you have a dental problem in the last 6 months where you did not have access to dental care?: No Was dental information given to patient?: No [facility] Medical History Venous thromboembolism Myocardial infarction Family history of anesthesia complication Urinary retention Renal calculi PAD (peripheral artery disease) CAD (coronary artery disease) SVT (supraventricular tachycardia) Macular degeneration Renal mass Atrial fibrillation Elevated cholesterol HTN (hypertension) Encounter for initial annual wellness visit (AWV) in Medicare patient Diabetes mellitus Surgical History History of ear surgery Hx of cataract extraction Hx of endoscopic retrograde cholangiopancreatography History of heart artery stent History of heart bypass surgery Social History Housing: House Are you a primary career based intervention coordinator to a significant other at home: No Do you presently have visiting nurse or other home services: No Alcohol intake: never Patient Tobacco Use Status: Former Tobacco user Tobacco use type: Pipe e-Cigarette/Vaping Use: Never Used Second Hand Smoke Exposure: Yes service: No Current occupational status: retired Cognitive needs: No Hearing needs: No Vision needs: Yes (Glasses) Questionnaire Thrive Questionnaire Date Thrive assessed: 12/02/24 I am a: Patient What is your living situation today?: I have a steady place to live Within the past 12 months, did the food you bought not last and you didn't have the money to get more?: Never true Within the past 12 months, did you worry whether your food would run out before you got money to buy more?: Never true Do you have trouble paying for medicines?: No Do you have trouble getting transportation to medical appointments?: No Do you have trouble paying your heating and electricity bill?: No Do you have trouble taking care of your child, family member or friend?: No Do you have trouble with day-to-day activities such as bathing, preparing meals, shopping, managing finances, etc.?: No Are you currently unemployed and looking for a job?: No Are you interested in more education?: No Please select the resources that you would like help with: None Currently or been in a relationship where the following occur: No concerns reported THRIVE Score: 0 CRYSTAL-7 AMB Questionnaire CRYSTAL-7 Date CRYSTAL - 7 assessed: 12/02/24 Source: Developed by Drs. Js Pathak, Janett Cummings, Stef Trevino and colleagues, with an educational len from [employer]. Physical exam (Primary Care) Tobacco/Smoking Status: Tobacco use Status Tobacco use date assessed 08/16/24 08/16/24 14:39 Patient Tobacco Use Status Former Tobacco user 08/16/24 14:39 Tobacco use type Pipe 08/16/24 14:39 e-Cigarette/Vaping Use Never Used 08/16/24 14:39 Thrive Assessment: Date of Thrive Assessment Date Thrive assessed 08/16/24 08/16/24 14:39 Currently or been in a relationship where the following occur: No concerns reported Coding
[2024-12-02 13:33] VITALS: BP 138/58; PULSE 67; O2SAT 97; BMI 23.9
--- NOTE | 2024-12-02 13:35 | A.OFFVIS_ITS ---
Intake Vital Signs 12/02/24 13:33 Height 5 ft 6 in Weight 148 lb 6 oz BMI 23.9 BP 138/58 L Blood Pressure Location Lt brachial Position Sitting Pulse 67 Pulse Source Pulse Oximeter Pulse Oximetry (%) 97 Oxygen Delivery Method Room Air Intake Visit Reasons: WELLNESS SUBSEQUENT Allergies No Known Allergies Allergy (Verified 12/02/24 13:45) Medication List - Last Reconciled 12/02/24 by Britt Ulrich PA-C aspirin 81 mg PO QAM atorvastatin 80 mg PO BEDTIME blood sugar diagnostic (OneTouch Ultra Test strips) test once daily blood sugar diagnostic Onetouch Ultra Test Strips to check blood sugars once a day dorzolamide-timolol 22.3-6.8 mg/mL 1 drp ophthalmic (eye) BID lancets Onetouch Lancets To check blood sugars once a day lancets (OneTouch UltraSoft 2 Lancet) test once daily latanoprost 0.005% 1 drp ophthalmic (eye) BEDTIME lisinopril 10 mg PO QAM mecobalamin (vitamin B12) 1,000 mcg PO DAILY metformin 500 mg PO BID metoprolol succinate ER 100 mg PO QAM [id number]-[id number]-clo-oqs-eztg-lut-daly 250 mg (90 mg-160 mg) (Ocuvite Adult 50 Plus) 1 cap PO QAM HPI WELLNESS SUBSEQUENT HPI Details 84-year-old male with past medical histo ry of diabetes mellitus, hypertension, hyperlipidemia, atrial fibrillation, history of DVT last seen by Dr. Mata 11/2023 coming in for AWV. In review of the notes, patient was seen by cardiology 08/2024 considering EP study and ablation. He had the ablation with Dr. Sampson 11/01/2024 and completed heart monitor and awaiting the read. Presenting with atrial fibrillation status post-ablation and diabetes mellitus. He reports no symptoms of heart racing post-procedure and is awaiting results from a recent heart monitor test. The patient's HbA1c has increased to 7.5. He is currently on metformin 500 mg twice daily, which will be increased to 1000 mg twice daily. The patient admits to dietary indiscretions, including consumption of M&Ms. The patient has a low B12 level and has been advised to take vqbj-gdn-tesoiaa B12 supplements. The patient experiences occasional leg swelling and uses compression stockings. colonoscopy: declined PSA: Up-to-date 09/2024 eye doctor: Every 8 weeks with a retina specialist [facility] Medical History Venous thromboembolism Myocardial infarction Family history of anesthesia complication Urinary retention Renal calculi PAD (peripheral artery disease) CAD (coronary artery disease) SVT (supraventricular tachycardia) Macular degeneration Renal mass Atrial fibrillation Elevated cholesterol HTN (hypertension) Encounter for initial annual wellness visit (AWV) in Medicare patient Diabetes mellitus Surgical History History of ear surgery Hx of cataract extraction Hx of endoscopic retrograde cholangiopancreatography History of heart artery stent History of heart bypass surgery Social History Housing: House Are you a primary home care administrator to a significant other at home: No Do you presently have visiting nurse or other home services: No Alcohol intake: never Patient Tobacco Use Status: Former Tobacco user Tobacco use type: Pipe e-Cigarette/Vaping Use: Never Used Second Hand Smoke Exposure: Yes service: No Current occupational status: retired Cognitive needs: No Hearing needs: No Vision needs: Yes (Glasses) Questionnaire Medicare Wellness Checkup What is your age?: 80 or older What gender do you identify with?: male During the past 4 weeks, how much have you been bothered by emotional problems such as feeling anxious, depressed, irritable, sad or downhearted, and blue?: not at all During the past 4 weeks, has your physical & emotional health limited your social activities with family, friends, neighbors, or groups?: not at all During the past 4 weeks, how much bodily pain have you generally had?: no pain During the past 4 weeks, was someone available to help you if you needed & wanted help?: yes, as much as I wanted During the past 4 weeks, what was the hardest physical activity you could do for at least 2 minutes?: heavy Can you get to places out of walking distance without help? (For eg., can you travel alone on buses, taxis or drive your car?): Yes Can you go shopping for groceries or clothes without someone's help?: Yes Can you prepare your own meals?: Yes Can you do your housework without help?: Yes Because of any health problems, do you need the help of another person with your personal care needs such as eating, bathing, dressing or getting around the house?: No Can you handle your own money without help?: Yes During the past 4 weeks, how would you rate your health in general?: very good During the past 4 weeks how have things been going for you?: very well; could hardly better Are you having difficulties driving your car?: not applicable, I don't use a car Do you always fasten your seat belt when you are in a car?: yes, usually During past 4 weeks, have you been bothered by the following: never: Falling or dizzy when standing up, Sexual problems?, Trouble eating well?, Teeth or denture problems?, Problems using the telephone? and Tiredness or fatigue? Have you fallen 2 or more times in the past year?: No Are you afraid of falling?: No Are you a smoker?: no During the past 4 weeks, how many drinks of wine, beer, or other alcoholic beverages did you have?: no alcohol at all Do you exercise for about 20 minutes 3 or more times a week?: yes, most of the time Have you been given information to help with the following?: no: Hazards in your house that might hurt you? and no: Keeping track of your medications? How often do you have trouble taking medicines the way you have been told to take them?: I always take medicine as prescribed How confident are you that you can control & manage most of your health problems?: very confident What is your race?: White PHQ-9 Over the last 2 weeks, how often have you been bothered by any of the following problems? 1. Little interest or pleasure in doing things: not at all 2. Feeling down, depressed, or hopeless: not at all 3. Trouble falling or staying asleep, or sleeping too much: not at all 4. Feeling tired or having little energy: not at all 5. Poor appetite or overeating: not at all 6. Feeling bad about yourself - or that you are a failure or have let yourself or your family down: not at all 7. Trouble concentrating on things, such as reading the newspaper or watching television: not at all 8. Moving or speaking so slowly that other people could have noticed. Or the opposite - being so fidgety or restless that you have been moving around a lot more than usual: not at all 9. Thoughts that you would be better off or of hurting yourself in some way: not at all Total score: 0 Depression Screening Interpretation: Negative Depression Screening Done: Yes 25278 - PHQ-9 Billing: Yes Source: Developed by Drs. Js Pathak, Janett Cummings, Stef Trevino and colleagues, with an educational len from [employer]. Review of Systems Const Denies body aches, Denies chills, Denies fever(s), Denies headache(s) and Denies poor appetite Eyes Reports no additional complaints ENT Denies dysphagia, Denies dizziness, Denies headache(s) and Denies odynophagia Card Denies chest pain, Denies syncope, Denies edema, Denies irregular heart rhythm, Denies lightheadedness and Denies dyspnea Resp Denies cough and Denies dyspnea GI Denies abdominal pain, Denies constipation, Denies dysphagia, Denies diarrhea, Denies nausea, Denies odynophagia and Denies vomiting Reports no additional complaints Musc Reports no additional complaints and Denies abnormal gait Skin/Breast Reports system reviewed and no additional complaints, except as documented Neuro Denies abnormal gait, Denies dizziness, Denies syncope and Denies headache(s) Psych Reports no additional complaints Physical Exam Vital Signs: Last Vital Signs Pulse 67 12/02/24 13:33 BP 138/58 L 12/02/24 13:33 Pulse Ox 97 12/02/24 13:33 Oxygen Delivery Method Room Air 12/02/24 13:33 BMI result Body Mass Index 23.9 Const General: cooperative, healthy appearing, comfortable and no acute distress Orientation/consciousness: patient oriented x3 HEENT Head: Yes normocephalic Ears: hearing grossly normal bilaterally, external ears normal, TM's normal bilaterally and EAC's normal General nose exam: Normal external nose present Face and sinus: Yes normal facial exam and Yes sinuses nontender Mouth: Normal oral and palatal mucosa present and tongue normal Throat: Yes posterior oropharynx normal Eyes General: appearance normal, both eyes and all related structures Conjunctivae: conjunctivae normal Pupils: Equal, round and reactive pupils present EOM: EOMs intact bilaterally and No Nystagmus present Neck Neck: Yes normal visual inspection, Yes full ROM and Yes no lymphadenopathy Chest Chest palpation & inspection: normal inspection of the chest Resp Effort & Inspection: normal respiratory effort Auscultation: clear to auscultation bilaterally, no crackles, no rales, no rhonchi, no wheezes and breath sounds present Cardio Rate: regular rate Rhythm: regular rhythm Peripheral pulses: radial pulses present and dorsalis pedis present GI Inspection: Yes normal to inspection and No Abdominal wall edema Palpation (GI): Soft to palpation, not firm and nontender Auscultation: normal bowel sounds Rectal Exam - Male: Yes deferred General: Yes no CVA tenderness Back/Spine/Pelvis Back: no CVA tenderness Skin General skin exam: no rashes or lesions noted Neuro General: patient oriented x3 Cranial nerves: Yes Equal, round and reactive pupils present, Yes Midline tongue present, Yes Ability to bilaterally elevate shoulders present and No Nystagmus present Gait exam (Neuro): Normal gait present Extrem General: Yes normal to inspection, Yes full ROM, No no pedal edema and No edema Psych Speech and movement: Normal speech and movement present Affect: normal affect Insight: Good insight present (Psych) Judgement: Good judgement present (Psych) Results AMB Hemoglobin A1c AMB Hemoglobin A1c 7.9 % Last Edit by Ruchi Lowe MA on 12/02/24 14:17 Results Reviewed Results Reviewed: Laboratory Last Values Hgb A1c (Clinic) 7.9 % (4.0-6.0) H 12/02/24 13:47 Assessment & Plan Assessment & Plan (1) Medicare annual wellness visit, subsequent: Code(s): Z00.00 - Encounter for general adult medical examination without abnormal findings Plan: Patient has good cognition is able to make informed decisions about his own health. He is up-to-date on all recommended routine screenings and vaccinations for his age. He is declining a colonoscopy and has not happened in the past. Healthy diet and regular exercise is encouraged. Blood work is up-to-date has been reviewed with the patient today. [place] of care was reviewed with patient patient was provided with a written screening schedule. Healthcare proxy/ MOLST forms were reviewed with patient and these were previously completed (2) Hypertension: Code(s): I10 - Essential (primary) hypertension Plan: Continue on current blood pressure medication. Avoid salt intake and encourage healthy diet and regular exercise. (3) S/P coronary artery stent placement: Comment: 2017 Code(s): Z95.5 - Presence of coronary angioplasty implant and graft Plan: Previous history of stent placement in 2017 manage blood pressure, cholesterol and blood sugars. He is currently on aspirin daily, atorvastatin 80 mg and metoprolol 100 mg in the morning (4) SVT (supraventricular tachycardia): Code(s): I47.10 - Supraventricular tachycardia, unspecified Plan: S/p ablation 10/2024 and recently completed a Holter monitor in his awaiting the read. He will continue to follow with his waste recycler for this concern. (5) Hyperlipidemia: Code(s): E78.5 - Hyperlipidemia, unspecified Plan: Avoid foods that are high in cholesterol such as red meat, fried foods, eggs and baked goods. Triglyceride goal of less than 150 and LDL goal of less than 70. Continue on atorvastatin 80. LDL at goal on last labs (6) Diabetes mellitus: Comment: type 2-dx 2015-FBS usually [id number] metformin Code(s): E11.9 - Type 2 diabetes mellitus without complications Plan: Decrease the amount of carbohydrates such as pasta, bread, rice, and potatoes and limit the amount of sweets. Although fruits are generally healthy they should be eaten in moderation as they are still high in sugar. Hemoglobin A1c goal of less than 7%. A1c in the clinic today 7.8% plan to increase metformin to 1000 mg b.i.d. has follow up in 3 months. (7) Macular degeneration: Comment: legally blind Code(s): H35.30 - Unspecified macular degeneration Plan: Continue to follow up retina specialist and smoked meat preparer to [facility]. (8) Renal mass: Code(s): N28.89 - Other specified disorders of kidney and ureter Plan: Continue to follow with Nephrology. Plan The patient will continue to be monitored for SVT following the recent ablation procedure. A heart monitor was used for two weeks, and the results are pending review by Dr. Sampson. The patient is advised to follow up with Dr. Sampson once the results are available. For diabetes management, the patient's metformin dosage will be increased to 1000 mg twice daily due to the elevated HbA1c level. The patient is advised to reduce dietary intake of sweets to help manage blood glucose levels. The patient is instructed to take mkli-eam-owlzjit vitamin supplements to address the deficiency. Regular monitoring of blood pressure is recommended, and the patient should continue using compression stockings to manage leg edema. This note was constructed using voice recognition software. While every effort has been made to ensure accuracy and silver cleaner, still areas may have been included sometimes these areas may affect the content or meeting of the given symptoms. Total time spent caring for the patient today was 30 minutes. This includes time spent before the visit reviewing the chart, time spent during the visit, and time spent after the visit and documentation. Patient was informed and verbally consented to the use of an ambient scribe for clinic note documentation during this visit. Orders: Orders AMB Hemoglobin A1c Today Z13.9 - Encounter for screening, unspecified Medications: Changed From metformin 500 mg PO BID 180 tabs 3RF To metformin 1,000 mg (2 x 500 mg) PO BID 180 tabs 3RF Refilled blood sugar diagnostic (OneTouch Ultra Test strips) test once daily 100 ea 4RF E11.9 - Type 2 diabetes mellitus without complications lancets (OneTouch UltraSoft 2 Lancet) test once daily 100 ea 4RF E11.9 - Type 2 diabetes mellitus without complications Quality Reporting (2020) Depression/Bipolar (159/160/161/177) PHQ-9: Total score: 0 Coding Level of Care Code Medicare Subsequent (G0439) Diagnoses Medicare annual wellness visit, subsequent Z00.00 Hypertension I10 S/P coronary artery stent placement Z95.5 SVT (supraventricular tachycardia) I47.10 Hyperlipidemia E78.5 Diabetes mellitus E11.9 Macular degeneration H35.30 Renal mass N28.89 Additional Codes PHQ-9 - 53676 - PHQ-9 Billing: Yes ([id number])
== END 2024-12-02 15:03 | disposition home or self-care (01) ==
LOC: HO.HMCH 13:29
DX: Z00.00 Encounter for general adult medical examination without abnormal findings (principal); E11.69 Type 2 diabetes mellitus with other specified complication; I10 Essential (primary) hypertension; Z95.5 Presence of coronary angioplasty implant and graft; I47.10 Supraventricular tachycardia, unspecified; E78.5 Hyperlipidemia, unspecified; H35.30 Unspecified macular degeneration; N28.89 Other specified disorders of kidney and ureter

== ENCOUNTER → 2024-12-02 13:28 | Outpatient (BNVA) | payer MEDICARE, SELFPAY | DX: Z00.00 Encounter for general adult medical examination without abnormal findings (principal); I10 Essential (primary) hypertension; I47.10 Supraventricular tachycardia, unspecified; E78.5 Hyperlipidemia, unspecified; E11.9 Type 2 diabetes mellitus without complications; H35.30 Unspecified macular degeneration; N28.89 Other specified disorders of kidney and ureter; Z95.5 Presence of coronary angioplasty implant and graft | CPT/HCPCS: 83036; 96127 ==

== ENCOUNTER 2025-03-10 10:22 | Outpatient (AMB) | payer MEDICARE, SELFPAY ==
[2025-03-10 10:24] VITALS: BP 120/58; PULSE 66; TEMP 36.3; O2SAT 99; BMI 23.6
--- NOTE | 2025-03-10 10:24 | MHC.PC.OV ---
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 Accompanied by: Spouse Allergies No Known Allergies Allergy (Verified 03/10/25 10:42) Medication List - Last Reconciled 03/10/25 by Britt Ulrich PA-C aspirin 81 mg PO QAM atorvastatin 80 mg PO BEDTIME blood sugar diagnostic (OneTouch Ultra Test strips) test once daily blood sugar diagnostic Onetouch Ultra Test Strips to check blood sugars once a day dorzolamide-timolol 22.3-6.8 mg/mL 1 drp ophthalmic (eye) BID lancets Onetouch Lancets To check blood sugars once a day lancets (OneTouch UltraSoft 2 Lancet) test once daily latanoprost 0.005% 1 drp ophthalmic (eye) BEDTIME lisinopril 10 mg PO QAM mecobalamin (vitamin B12) 1,000 mcg PO DAILY metformin 1,000 mg (2 x 500 mg) PO BID metoprolol succinate ER 100 mg PO QAM hb-[id number]-[id number]-nim-nyo-hoju-lut-daly 250 mg (90 mg-160 mg) (Ocuvite Adult 50 Plus) 1 cap PO QAM Tobacco use date assessed: 08/16/24 Fall risk assessment: No Falls in past year Last assessed Fall Risk: 08/16/24 Dental Screening Dental Screen Date: 08/16/24 Did you have a dental visit in the last 12 months?: No Did you have a dental problem in the last 6 months where you did not have access to dental care?: No Was dental information given to patient?: Patient declined HPI 3mth f/u HPI Details 85-year-old male with past medical history of diabetes mellitus, hypertension, hyperlipidemia, atrial fibrillation, history of DVT last seen 11/2024 coming in for follow up. Presenting for a follow-up on chronic condition management. The patient's most recent HgbA1c was 6.9, showing improvement with the new metformin regimen of two tablets daily instead of one. He has been working on dietary modifications and overall feels generally well. [facility] Medical History Venous thromboembolism Myocardial infarction Family history of anesthesia complication Urinary retention Renal calculi PAD (peripheral artery disease) CAD (coronary artery disease) SVT (supraventricular tachycardia) Macular degeneration Renal mass Atrial fibrillation Elevated cholesterol HTN (hypertension) Encounter for initial annual wellness visit (AWV) in Medicare patient Diabetes mellitus Surgical History History of ear surgery Hx of cataract extraction Hx of endoscopic retrograde cholangiopancreatography History of heart artery stent History of heart bypass surgery Social History Housing: House Are you a primary director of critical care to a significant other at home: No Do you presently have visiting nurse or other home services: No Alcohol intake: never Patient Tobacco Use Status: Former Tobacco user Tobacco use type: Pipe e-Cigarette/Vaping Use: Never Used Second Hand Smoke Exposure: Yes service: No Current occupational status: retired Cognitive needs: No Hearing needs: No Vision needs: Yes (Glasses) Questionnaire PHQ-9 Over the last 2 weeks, how often have you been bothered by any of the following problems? 1. Little interest or pleasure in doing things: not at all 2. Feeling down, depressed, or hopeless: not at all 3. Trouble falling or staying asleep, or sleeping too much: not at all 4. Feeling tired or having little energy: not at all 5. Poor appetite or overeating: not at all 6. Feeling bad about yourself - or that you are a failure or have let yourself or your family down: not at all 7. Trouble concentrating on things, such as reading the newspaper or watching television: not at all 8. Moving or speaking so slowly that other people could have noticed. Or the opposite - being so fidgety or restless that you have been moving around a lot more than usual: not at all 9. Thoughts that you would be better off or of hurting yourself in some way: not at all Total score: 0 Depression Screening Interpretation: Negative Depression Screening Done: Yes 90694 - PHQ-9 Billing: Yes Source: Developed by Drs. Js Pathak, Stef Brennan and colleagues, with an educational len from [employer]. Thrive Questionnaire Date Thrive assessed: 08/16/24 I am a: Patient What is your living situation today?: I have a steady place to live Within the past 12 months, did the food you bought not last and you didn't have the money to get more?: Never true Within the past 12 months, did you worry whether your food would run out before you got money to buy more?: Never true Do you have trouble paying for medicines?: No Do you have trouble getting transportation to medical appointments?: No Do you have trouble paying your heating and electricity bill?: No Do you have trouble taking care of your child, family member or friend?: No Do you have trouble with day-to-day activities such as bathing, preparing meals, shopping, managing finances, etc.?: No Are you currently unemployed and looking for a job?: No Are you interested in more education?: No Please select the resources that you would like help with: None Currently or been in a relationship where the following occur: No concerns reported THRIVE Score: 0 AUDIT C Alcohol Use Questionnaire (AUDIT-C) 1. How often do you have a drink containing alcohol?: Never Total Score: 0 CRYSTAL-7 AMB Questionnaire CRYSTAL-7 Date CRYSTAL - 7 assessed: 08/16/24 Feeling nervous, anxious, or on edge: 0 = Not at all Not being able to stop or control worryin = Not at all Worrying too much about different things: 0 = Not at all Trouble relaxin = Not at all Being so restless that it is hard to sit still: 0 = Not at all Becoming easily annoyed or irritable: 0 = Not at all Feeling afraid as if something awful might happen: 0 = Not at all Total CRYSTAL-7 score (0-4 normal; 5-9 mild; 10-14 moderate; 15-21 severe): 0 Source: Developed by Drs. Js Pathak, Stef Brennan and colleagues, with an educational len from [employer]. CRYSTAL-7 Assessment Billing CRYSTAL-7 Assessment Tool: CRYSTAL-7 Assessment 74229 Review of Systems Const Denies body aches, Denies chills, Denies fever(s), Denies headache(s) and Denies poor appetite Eyes Reports no additional complaints ENT Denies dizziness and Denies headache(s) Card Denies chest pain, Denies lightheadedness and Denies dyspnea Resp Denies dyspnea GI Denies nausea and Denies vomiting Reports no additional complaints Musc Reports no additional complaints and Denies abnormal gait Skin/Breast Reports system reviewed and no additional complaints, except as documented Neuro Denies abnormal gait, Denies dizziness and Denies headache(s) Psych Reports no additional complaints Physical exam (Primary Care) Vital Signs: Last Vital Signs Temp 97.3 F 03/10/25 10:24 Pulse 66 03/10/25 10:24 BP 120/58 L 03/10/25 10:24 Pulse Ox 99 03/10/25 10:24 Oxygen Delivery Method Room Air 03/10/25 10:24 BMI result Body Mass Index 23.6 Tobacco/Smoking Status: Tobacco use Status Tobacco use date assessed 08/16/24 03/10/25 10:26 Patient Tobacco Use Status Former Tobacco user 03/10/25 10:26 Tobacco use type Pipe 03/10/25 10:26 e-Cigarette/Vaping Use Never Used 03/10/25 10:26 PHQ-9: PHQ-9 Score PHQ-9: Total score 0 03/10/25 10:42 Depression Screening Interpretation: Negative Thrive Assessment: Date of Thrive Assessment Date Thrive assessed 08/16/24 03/10/25 10:26 Currently or been in a relationship where the following occur: No concerns reported Const General: cooperative, healthy appearing, comfortable and no acute distress Orientation/consciousness: patient oriented x3 [facility] Head: Yes normocephalic Ears: hearing grossly normal bilaterally General nose exam: Normal external nose present Eyes General: appearance normal, both eyes and all related structures Conjunctivae: conjunctivae normal Neck Neck: Yes full ROM and Yes no lymphadenopathy Resp Effort & Inspection: normal respiratory effort Auscultation: clear to auscultation bilaterally, no crackles, no rales, no rhonchi and no wheezes Cardio Rate: regular rate Rhythm: regular rhythm Skin General skin exam: no rashes or lesions noted Neuro General: patient oriented x3 Gait exam (Neuro): Normal gait present Extrem General: Yes normal to inspection, Yes full ROM and No edema Psych Affect: normal affect Attitude: cooperative Insight: Good insight present (Psych) Judgement: Good judgement present (Psych) Results AMB Hemoglobin A1c AMB Hemoglobin A1c 6.9 % Last Edit by Paige Solano MA on 03/10/25 10:56 Coding Level of Care Code Est Pt Level 3 (38977) Diagnoses Hypertension I10 S/P coronary artery stent placement Z95.5 Hyperlipidemia E78.5 Diabetes mellitus E11.9 Additional Codes CRYSTAL-7 Assessment Billing - CRYSTAL-7 Assessment Tool: CRYSTAL-7 Assessment 24262 ([id number]) PHQ-9 - 89983 - PHQ-9 Billing: Yes ([id number]) Assessment & Plan Assessment & Plan (1) Hypertension: Code(s): I10 - Essential (primary) hypertension Category: Medical Plan: Continue on current blood pressure medication. Avoid salt intake and encourage healthy diet and regular exercise. (2) S/P coronary artery stent placement: Comment: 2016 Code(s): Z95.5 - Presence of coronary angioplasty implant and graft Category: Surgical Plan: Previous history of stent placement in 2017 manage blood pressure, cholesterol and blood sugars. He is currently on aspirin daily, atorvastatin 80 mg and metoprolol 100 mg in the morning (3) Hyperlipidemia: Code(s): E78.5 - Hyperlipidemia, unspecified Category: Medical Plan: Avoid foods that are high in cholesterol such as red meat, fried foods, eggs and baked goods. Triglyceride goal of less than 150 and LDL goal of less than 70. Continue on atorvastatin 80. LDL at goal on last labs. PLan to repeat labs prior to next visit (4) Diabetes mellitus: Comment: type 2-dx 2015-FBS usually [id number] metformin Code(s): E11.9 - Type 2 diabetes mellitus without complications Category: Medical Plan: Decrease the amount of carbohydrates such as pasta, bread, rice, and potatoes and limit the amount of sweets. Although fruits are generally healthy they should be eaten in moderation as they are still high in sugar. Hemoglobin A1c goal of less than 7%. A1c in the clinic today At his last visit Metformin was increased to 1,000 BID and A1c has improved to 6.9% from 7.9%. We discussed following up at his annual however given this is outside of the usual range for diabetic follow up he will continue to monitor his blood sugar on a daily basis and reach out should the exceed acceptable value. Plan This note was constructed using voice recognition software. While every effort has been made to ensure accuracy and document control coordinator, still areas may have been included sometimes these areas may affect the content or meeting of the given symptoms. Total time spent caring for the patient today was 20 minutes. This includes time spent before the visit reviewing the chart, time spent during the visit, and time spent after the visit and documentation. Patient was informed and verbally consented to the use of an ambient scribe for clinic note documentation during this visit. Orders: Orders AMB Hemoglobin A1c Today Z13.9 - Encounter for screening, unspecified Medications: New metformin 1,000 mg PO BID 180 tabs 1RF Discontinued metformin Discontinued Reason: Patient no longer taking 1,000 mg (2 x 500 mg) PO BID 180 tabs 3RF
--- OUTSIDE RECORDS SUMMARY | 2025-03-10 11:05 | XMS_ITS | Clinical Summary ---
Author Organization [facility] Address [address] [place] [address] Phone Care Team Providers Care Technical Agronomist Name Role Phone Oniel Eddy MD Primary Care Provider Allergies No known active allergies Medications atorvastatin [...] Office Visit [facility] [address] [id number] Addison Dillard MD [address] [address] Health Maintenance Due Date Last [...] age to complete this topic Insurance Medicare [facility] Medicare [facility] Care Teams Technical Agronomist Relationship Specialty Start Date End Date Oniel Eddy MD [facility] [place] [id number] [place] PCP - General Internal Medicine 08/25/24
== END 2025-03-10 11:43 | disposition home or self-care (01) ==
LOC: HO.HMCH 10:23
DX: I10 Essential (primary) hypertension (principal); Z95.5 Presence of coronary angioplasty implant and graft; E78.5 Hyperlipidemia, unspecified; E11.9 Type 2 diabetes mellitus without complications; Z13.9 Encounter for screening, unspecified

== ENCOUNTER → 2025-03-10 10:22 | Outpatient (BNVA) | payer MEDICARE, SELFPAY | DX: E11.9 Type 2 diabetes mellitus without complications (principal); I10 Essential (primary) hypertension; E78.5 Hyperlipidemia, unspecified; Z95.5 Presence of coronary angioplasty implant and graft; Z13.31 Encounter for screening for depression | CPT/HCPCS: 83036; 96127; 99212 ==